=== PATIENT | male | born 1960 | race Hispanic/Latino ===

== ENCOUNTER 2017-11-14 16:36 | Inpatient (IN) | payer OTHER ==
[2017-11-14] MEDS ORDERED: NACL 0.9% 1000 ML 1,000 ML IV ONE (17:42)
[2017-11-14] MEDS ORDERED: ZOFRAN IV ONE (17:42)
[2017-11-14] MEDS ORDERED: MORPHINE IV ONE (17:42)
--- NOTE | 2017-11-14 17:48 | Emergency Department Report ---
ED General Adult HPI - General Chief complaint: Back Pain/Injury Stated complaint: BACK PAIN Time Seen by Provider: 11/14/17 17:31 Source: EMS Mode of arrival: Wheelchair Limitations: No Limitations - History of Present Illness Initial comments: Patient is 57 years old male history of chronic back pain presented to the ER with cement complaining of left upper extremity pain and warned this being going on for 2 weeks. Patient stated that he has been having pus coming out of his left arm and he is left shoulder. Patient denied any fever, nausea or vomiting. -: week(s) (2 weeks) Location: upper extremity Severity scale (0 -10): 10 Quality: stabbing Consistency: constant - Related Data Allergies Allergy/AdvReac Type Severity Reaction Status Date / Time No Known Allergies Allergy Unverified 11/14/17 17:22 ED Review of Systems ROS: Stated complaint: BACK PAIN Other details as noted in HPI Comment: All other systems reviewed and negative Constitutional: denies: chills, fever Respiratory: denies: shortness of breath, SOB with exertion, SOB at rest, wheezing Cardiovascular: denies: chest pain, palpitations, dyspnea on exertion Gastrointestinal: denies: abdominal pain, nausea, vomiting, diarrhea ED Past Medical Hx - Past Medical History Hx Diabetes: Yes - Surgical History Past Surgical History?: No - Social History Smoking Status: Unknown if ever smoked ED Physical Exam - General Limitations: No Limitations General appearance: alert, in no apparent distress - Head Head exam: Present: atraumatic, normocephalic, normal inspection - Eye Eye exam: Present: normal appearance, PERRL - ENT ENT exam: Present: normal exam, normal orophraynx, mucous membranes moist - Neck Neck exam: Present: normal inspection, full ROM. Absent: tenderness, meningismus, lymphadenopathy, thyromegaly - Respiratory Respiratory exam: Present: normal lung sounds bilaterally. Absent: respiratory distress, wheezes, rales, rhonchi, chest wall tenderness - Cardiovascular Cardiovascular Exam: Present: regular rate, normal rhythm, normal heart sounds - GI/Abdominal GI/Abdominal exam: Present: soft, normal bowel sounds. Absent: distended, tenderness, guarding, rebound, rigid, organomegaly, mass, bruit, pulsatile mass , hernia - Extremities Exam Extremities exam: Present: other (multiple wounds oozing greenish pus from the left biceps muscles area in the area of the left shoulder and clavicle.) - Back Exam Back exam: Present: normal inspection, full ROM. Absent: tenderness - Neurological Exam Neurological exam: Present: alert, oriented X3, CN II-XII intact, normal gait - Skin Skin exam: Present: warm, other (see above) ED Course Vital Signs 11/14/17 17:22 Temperature 99.9 F H Pulse Rate 91 H Respiratory 18 Rate Blood Pressure 129/73 [Right] O2 Sat by Pulse 97 Oximetry ED Medical Decision Making - Lab Data Result diagrams: 11/14/17 18:39 - Medical Decision Making Discussed with Dr. Ferreira, I presented the patient to him, he stated that he will be happy to see the patient in the morning. Discussed with Dr. Sanchez, he agreed to admit the patient to his service. Critical care attestation.: If time is entered above; I have spent that time in minutes in the direct care of this critically ill patient, excluding procedure time. ED Disposition Clinical Impression: Abscess of left arm, Abscess of left shoulder, Abscess of upper back excluding scapular region Disposition: OP ADMIT IP TO THIS HOSP Is pt being admited?: Yes Condition: Stable Referrals: PRIMARY CARE, [Primary Care Provider] - 3-5 Days
[2017-11-14] MEDS ORDERED: VANCOMYCIN PHARMACY TO DOSE IV SCH (18:00)
[2017-11-14 19:10] LABS: Basophils # (Auto) 0.1 K/mm3 (0.0-0.1); Basophils % (Auto) 0.6 % (0.0-1.8); Eosinophils % (Auto) 0.1 % (0.0-4.3); Lymphocytes % (Auto) 7.7 % (13.4-35.0); Mean Corpuscular HGB Conc 32 % (32-34); Mean Corpuscular Hemoglobin 27 pg (28-32); Mean Corpuscular Volume 85 fl (84-94); Monocytes # (Auto) 0.9 K/mm3 (0.0-0.8); Monocytes % (Auto) 6.8 % (0.0-7.3); Platelet Count 597 K/mm3 (140-440); Red Blood Count 3.64 M/mm3 (3.65-5.03); Red Cell Distribution Width 15.8 % (13.2-15.2)
[2017-11-14] MEDS ORDERED: VANCOMYCIN 1,500 MG in NACL 0.9% 500 ML 500 ML IV ONE (19:30)
[2017-11-14 19:34] LABS: Alanine Aminotransferase 8 units/L (7-56); Albumin 2.6 g/dL (3.9-5); BUN/Creatinine Ratio 28; Blood Urea Nitrogen 11 mg/dL (9-20); Calcium 8.1 mg/dL (8.4-10.2); Hemolysis Index 6
[2017-11-14] MEDS ORDERED: ZOFRAN ONE (20:15)
[2017-11-14] MEDS ORDERED: MORPHINE ONE (20:15)
--- NOTE | 2017-11-14 21:20 | Ultrasound Report ---
FINAL REPORT EXAM: US EXTREMITY NONVASCULAR LT HISTORY: possible abscess to the left biceps and left shoulder TECHNIQUE: Limited soft tissue ultrasound of the left shoulder and upper arm PRIORS: None. FINDINGS: In the area of clinical concern, there is an avascular area of fluid interspersed among muscle layers in the left mid upper arm. This has the appearance of edema. No well-defined surrounding wall is seen. No solid or cystic focal abnormality is seen. IMPRESSION: No solid or cystic focal abnormality. Cystic fluid interspersed among muscle layers of the upper arm suggesting edema.
[2017-11-15] MEDS ORDERED: MORPHINE IM ONE (00:25)
[2017-11-15] MEDS: MORPHINE IV PRN ×6 (01:26→17:01)
--- NOTE | 2017-11-15 01:29 | Event Note ---
Date: 11/14/17 See dictated H/p in reports L shoulder abscess/Carbuncle-IV abx Surgery consult requested IDDM Malnutrition
[2017-11-15] MEDS ORDERED: VANCOMYCIN/NS 1 GM/250 ML 1 GM/250 ML BAG IV SCH (05:00)
[2017-11-15] MEDS: VANCOMYCIN/0.45 NS 1 GM/250 ML 1 GM/250 ML BAG IV SCH ×2 (05:10→19:44)
[2017-11-15] MEDS ORDERED: ZOFRAN IV PRN ×3 (05:37→05:51)
[2017-11-15] MEDS ORDERED: TYLENOL PO PRN ×3 (05:37→05:51)
[2017-11-15] MEDS ORDERED: MILK OF MAGNESIA PO PRN ×3 (05:37→05:51)
[2017-11-15] MEDS ORDERED: DULCOLAX PR PRN ×2 (05:37→05:51)
[2017-11-15] MEDS ORDERED: MORPHINE IV PRN (05:38)
[2017-11-15] MEDS ORDERED: PERCOCET 5/325 PO PRN ×2 (05:38→05:43)
[2017-11-15] MEDS ORDERED: NACL 0.9% 1000 ML 1,000 ML IV SCH ×2 (06:00)
[2017-11-15] MEDS: UNASYN/NS 3 GM/100 ML 3 GM/100 ML BAG IV SCH ×3 (06:56→19:20)
[2017-11-15 07:17] LABS: BUN/Creatinine Ratio 23; Blood Urea Nitrogen 9 mg/dL (9-20); Calcium 7.9 mg/dL (8.4-10.2); Hemolysis Index 1
--- NOTE | 2017-11-15 07:35 | History and Physical Report ---
CHIEF COMPLAINT: Left upper shoulder abscesses and pain. HISTORY OF PRESENT ILLNESS: A 57-year-old male with multiple tattoos and diabetes, comes in for left upper shoulder abscess and purulent drainage for 2 weeks. The patient has pus coming out of the left suprascapular region and also the left shoulder extending to the left upper arm. Because of the abscess and pain, the patient was staying in his truck for the last 2 days. EMS has to come and get involved. The patient states he cannot walk because of the back pain. Not eating or taking care of himself for the last 2 days. The question is whether he is homeless or not, the patient unable to tell. The patient was alert. PAST MEDICAL HISTORY: Significant for diabetes. PAST SURGICAL HISTORY: None. SOCIAL HISTORY: He used to smoke. FAMILY HISTORY: Significant for diabetes and hypertension. REVIEW OF SYSTEMS: GENERAL: No appetite. Lethargic. Losing weight. HEENT: No sore throat, no postnasal drip. CARDIOVASCULAR AND RESPIRATORY: No shortness of breath. No chest pain. GASTROINTESTINAL: No nausea, no vomiting, no diarrhea. GENITOURINARY: No dysuria. MUSCULOSKELETAL: No flank pain. Has severe pain in the left suprascapular region and left shoulder region. SKIN: Purulent discharge on the left suprascapular and left shoulder region. Copious amounts. Not foul smelling. Swelling present. No redness present. PHYSICAL EXAMINATION: GENERAL: A middle-aged male, looks older than his age. VITAL SIGNS: Temperature 99.9, pulse is 91, respirations are 18, blood pressure 129/73, sats are 97%. HEENT: Unremarkable. Pupils equal and reactive. NECK: Supple, no lymphadenopathy, no thyromegaly. LUNGS: Clear to auscultation and percussion. Good air entry. CARDIOVASCULAR: S1, S2 heard. No gallop, no murmur, no rub. Apical impulse in left fifth intercostal space and midclavicular line. ABDOMEN: Soft and benign. No hepatosplenomegaly. No guarding, no rigidity. Hernial orifices are normal. EXTREMITIES: Good pedal pulses. No pedal edema. CENTRAL NERVOUS SYSTEM: Alert and oriented x 4, nonfocal exam. SKIN: A large area of induration and pus and drainage present on the left suprascapular region and the left shoulder. Two discrete areas of pus drainage. Covering area of 12 cm x 10 cm. Fluctuant. LABORATORY DATA: Significant for white count of 12,800, H and H is 10.0 and 31.0, platelet count is . Electrolytes are normal. Glucose is 139. Total protein is 6.2, albumin is 2.6, BUN and creatinine is 11 and 0.4. Ultrasound of the left upper extremity and shoulder shows avascular area of oozing present among the muscle layers in the left mid upper arm and edema. No well defined surrounding wall seen. No solid or cystic focal abnormalities seen. IMPRESSION: Abscess to the left biceps, left triceps and left shoulder. ASSESSMENT AND PLAN: 1. Left shoulder abscess and left upper extremity abscess. The patient needs I and D. IV antibiotics in the meantime. The patient is started on IV Unasyn and IV vancomycin. ID consult requested. Dr. Ferreira was consulted to see the patient in the morning. 2. Diabetes type 2. The patient started on coverage. The patient may end up being on insulin 70/30 twice a day. 3. Social issues. The patient may be homeless. The patient needs a placement. hostel manager to deal with the social issues. 4. Deep venous thrombosis prophylaxis, Lovenox 40 mg subcutaneous daily 5. Malnutrition, moderate and dietitian consult requested. JOB# [id number] VSM/NTS
[2017-11-15] MEDS: NOVOLOG SUB-Q SCH ×3 (09:15→17:00)
[2017-11-15] MEDS: PEPCID IV SCH ×2 (09:21→21:20)
[2017-11-15] MEDS ORDERED: PEPCID IV SCH (10:00)
[2017-11-15] MEDS ORDERED: K-DUR PO SCH (11:30)
--- NOTE | 2017-11-15 11:39 | Consultation ---
History of Present Illness Consult date: 11/15/17 Reason for consult: wound care Requesting physician: ENRRIQUE WINTERS Chief complaint: chronic drainage from chest and arm - History of present illness History of present illness: 57yo M with recent diagnosis of DM presents with persistent drainage from the left arm and chest. Pt reports that a few weeks ago, he was admitted to [facility] for weakness. During the admission there was a problem with the IV insertion in the left arm. There was great pain associated with it. Soon after he removed it, it swelled and was red. Later, he began to spontaneous drain pus from the left shoulder area. Eventually, he drained from the left arm and near the base of the neck. He has been milking out the pus that accumulated on the left chest. these areas are causing him a lot of pain. Denies F/C/N/V. No other areas of infection on the body. Past History Past Medical History: diabetes Past Surgical History: No surgical history Social history: denies: smoking (stopped a few weeks ago.), alcohol abuse Family history: no significant family history Medications and Allergies Allergies Allergy/AdvReac Type Severity Reaction Status Date / Time No Known Allergies Allergy Unverified 11/14/17 17:22 Active Meds: Active Medications Acetaminophen (Tylenol) 650 mg PO Q4H PRN PRN Reason: Pain MILD(1-3)/Fever >100.5/HAMMER Bisacodyl (Dulcolax) 10 mg WV QDAY PRN PRN Reason: Constipation unrelieved by MOM Famotidine (Pepcid) 20 mg IV BID [facility] Last Admin: 11/15/17 09:21 Dose: 20 mg Vancomycin HCl (Vancomycin/0.45 Ns 1 Gm/250 Ml) 1 gm in 250 mls @ 167.007 mls/ hr IV Q12H [facility] Last Admin: 11/15/17 05:10 Dose: 167.007 mls/hr Ampicillin Sodium/Sulbactam Sodium (Unasyn/Ns 3 Gm/100 Ml) 3 gm in 100 mls @ 100 mls/hr IV Q6HR BRENT PRN Reason: Protocol Stop: 11/22/17 05:59 Last Admin: 11/15/17 06:56 Dose: 100 mls/hr Sodium Chloride (Nacl 0.9% 1000 Ml) 1,000 mls @ 75 mls/hr IV DIRECT [facility] Stop: 11/15/17 18:00 Last Admin: 11/15/17 06:44 Dose: 75 mls/hr Insulin Aspart (Novolog) 0 units SUB-Q ACHS BRENT PRN Reason: Protocol Last Admin: 11/15/17 09:15 Dose: Not Given Magnesium Hydroxide (Milk Of Magnesia) 30 ml PO Q4H PRN PRN Reason: Constipation Morphine Sulfate (Morphine) 4 mg IV Q4H PRN PRN Reason: Pain , Severe (7-10) Last Admin: 11/15/17 09:21 Dose: 4 mg Morphine Sulfate (Morphine) 2 mg IV Q4H PRN PRN Reason: Pain, Moderate (4-6) Ondansetron HCl (Zofran) 4 mg IV Q8H PRN PRN Reason: N/V unrelieved by Reglan Oxycodone/Acetaminophen (Percocet 5/325) 1 tab PO Q6H PRN PRN Reason: Pain, Moderate (4-6) Potassium Chloride (K-Dur) 40 meq PO ONCE [facility] Stop: 11/15/17 18:30 Vancomycin HCl (Vancomycin Pharmacy To Dose) 1 each IV PKCONSULT [facility] Zolpidem Tartrate (Ambien) 5 mg PO QHS PRN PRN Reason: Insomnia Review of Systems - Constitutional weight loss (28lbs when he was admitted in [facility] - early satiety), weakness, no fever, no chills, no sweats, no night sweats - Cardiovascular no chest pain - Respiratory no cough, no shortness of breath - Gastrointestinal no abdominal pain, no nausea, no vomiting - Genitourinary no dysuria - Muskuloskeletal left: shoulder pain, other (left arm) - Integumentary wounds - Hematologic/Lymphatic no easy bruising, no easy bleeding Exam Vital Signs Temp Pulse Resp BP Pulse Ox 99.9 F H 91 H 18 129/73 97 11/14/17 17:22 11/14/17 17:22 11/14/17 17:22 11/14/17 17:22 11/14/17 17:22 - General physical appearance Positive: no distress, moderate pain (occasionally) - Eyes Positive: normal occular movement - Neck Positive: trachea midline - Respiratory Positive: normal expansion, normal respiratory effort, clear to auscultation - Cardiovascular Rhythm: regular - Abdomen Abdomen: Present: soft. Absent: tender, distended, guarding, rigid - Integumentary Body Four View: 1 - Multiple opens with the lateral most draining purulent material. Hypergranulation tissue seen in lateral wound. 2 - Areas of mild erythema with fluctuance. Able to express purulent material from here to lateral wound. 3 - Small opening with purulent drainage. Area proximal suggests a cord, but there is another area on the medial aspect that is also cord-like. There is no erythema or tenderness. - Neurologic Neurologic: alert and oriented to time, place and person, motor strength and sensation are grossly intact - Psychiatric Psychiatric: appropriate mood/affect, intact judgment & insight Results - Labs 11/14/17 18:39 11/15/17 06:39 Abnormal lab results 11/14/17 11/14/17 11/15/17 Range/Units 18:39 18:39 06:39 WBC 12.8 H (4.5-11.0) K/mm3 RBC 3.64 L (3.65-5.03) M/mm3 Hgb 10.0 L (11.8-15.2) gm/dl Hct 31.0 L (35.5-45.6) % MCH 27 L (28-32) pg RDW 15.8 H (13.2-15.2) % Plt Count 597 H (140-440) K/mm3 Lymph % (Auto) 7.7 L (13.4-35.0) % Lymph # 1.0 L (1.2-5.4) K/mm3 Bremer # 0.9 H (0.0-0.8) K/mm3 Seg Neutrophils % 84.8 H (40.0-70.0) % Seg Neutrophils # 10.9 H (1.8-7.7) K/mm3 Sodium 135 L (137-145) mmol/L Potassium 3.3 L (3.6-5.0) mmol/L Creatinine 0.4 L 0.4 L (0.8-1.5) mg/dL Glucose 139 H 119 H (75-100) mg/dL Hemoglobin A1c (4-6) % Calcium 8.1 L 7.9 L (8.4-10.2) mg/dL Total Protein 6.2 L (6.3-8.2) g/dL Albumin 2.6 L (3.9-5) g/dL 11/15/17 Range/Units 06:39 WBC (4.5-11.0) K/mm3 RBC (3.65-5.03) M/mm3 Hgb (11.8-15.2) gm/dl Hct (35.5-45.6) % MCH (28-32) pg RDW (13.2-15.2) % Plt Count (140-440) K/mm3 Lymph % (Auto) (13.4-35.0) % Lymph # (1.2-5.4) K/mm3 Bremer # (0.0-0.8) K/mm3 Seg Neutrophils % (40.0-70.0) % Seg Neutrophils # (1.8-7.7) K/mm3 Sodium (137-145) mmol/L Potassium (3.6-5.0) mmol/L Creatinine (0.8-1.5) mg/dL Glucose (75-100) mg/dL Hemoglobin A1c 7.5 H (4-6) % Calcium (8.4-10.2) mg/dL Total Protein (6.3-8.2) g/dL Albumin (3.9-5) g/dL Diabetes panel 11/14/17 11/15/17 11/15/17 Range/Units 18:39 06:39 06:39 Sodium 138 135 L (137-145) mmol/L Potassium 3.9 3.3 L (3.6-5.0) mmol/L Chloride 98.8 100.6 (98-107) mmol/L Carbon Dioxide 25 25 (22-30) mmol/L BUN 11 9 (9-20) mg/dL Creatinine 0.4 L 0.4 L (0.8-1.5) mg/dL Glucose 139 H 119 H (75-100) mg/dL Hemoglobin A1c 7.5 H (4-6) % Calcium 8.1 L 7.9 L (8.4-10.2) mg/dL AST 10 (5-40) units/L ALT 8 (7-56) units/L Alkaline Phosphatase 98 (35-129) units/L Total Protein 6.2 L (6.3-8.2) g/dL Albumin 2.6 L (3.9-5) g/dL Calcium panel 11/14/17 11/15/17 Range/Units 18:39 06:39 Calcium 8.1 L 7.9 L (8.4-10.2) mg/dL Albumin 2.6 L (3.9-5) g/dL Pituitary panel 11/14/17 11/15/17 Range/Units 18:39 06:39 Sodium 138 135 L (137-145) mmol/L Potassium 3.9 3.3 L (3.6-5.0) mmol/L Chloride 98.8 100.6 (98-107) mmol/L Carbon Dioxide 25 25 (22-30) mmol/L BUN 11 9 (9-20) mg/dL Creatinine 0.4 L 0.4 L (0.8-1.5) mg/dL Glucose 139 H 119 H (75-100) mg/dL Calcium 8.1 L 7.9 L (8.4-10.2) mg/dL Adrenal panel 11/14/17 11/15/17 Range/Units 18:39 06:39 Sodium 138 135 L (137-145) mmol/L Potassium 3.9 3.3 L (3.6-5.0) mmol/L Chloride 98.8 100.6 (98-107) mmol/L Carbon Dioxide 25 25 (22-30) mmol/L BUN 11 9 (9-20) mg/dL Creatinine 0.4 L 0.4 L (0.8-1.5) mg/dL Glucose 139 H 119 H (75-100) mg/dL Calcium 8.1 L 7.9 L (8.4-10.2) mg/dL Total Bilirubin 0.40 (0.1-1.2) mg/dL AST 10 (5-40) units/L ALT 8 (7-56) units/L Alkaline Phosphatase 98 (35-129) units/L Total Protein 6.2 L (6.3-8.2) g/dL Albumin 2.6 L (3.9-5) g/dL - Imaging Additional studies: US of left arm Assessment and Plan - Patient Problems (1) Abscess of multiple sites of upper arm Current Visit: Yes Status: Acute Plan to address problem: Pt stable. Not toxic. As these areas of infection have been here for a few weeks , I think he will benefit from a formal drainage and debridement. Will address left shoulder and arm at same time. I explained to him that I may have to make large openings in the skin to facilitate the healing. Procedure, risks, benefits , alternatives discussed. all questions answered. Pt wishes to proceed to OR. Scheduled for tomorrow at 2pm. NPO after midnight. Thank you for the consult. Please call if there are any questions. Time=60min.
--- NOTE | 2017-11-15 12:25 | Progress Note ---
<CLARA TIRADO - Last Filed: 11/15/17 12:19> Assessment and Plan Assessment and plan: Patient is a 57-year-old male with history of diabetes, comes in for left upper shoulder and arm abscess with purulent drainage for 2 weeks. Patient also complains of back pain which is currently, 10 out of 10 present on admission. Left shoulder abscess and left upper extremity abscess Continue IV antibiotics Dr. Ferreira has evaluated the patient and will perform I&D tomorrow ID consulted Type 2 diabetes ADA diet, Accu-Cheks, ACHS, sliding scale insulin Moderate Malnutrition Nutrition consulted Social problem manager internet consulted DVT prophylaxis Lovenox History Interval history: Patient seen and examined. No new events overnight. Labs and nursing notes reviewed. Hospitalist Physical - Constitutional Vitals: Temp Pulse Resp BP Pulse Ox 98.3 F 85 17 129/78 96 11/15/17 04:55 11/15/17 04:55 11/15/17 04:55 11/15/17 04:55 11/14/17 20:16 General appearance: Present: mild distress, well-nourished - EENT Eyes: Present: PERRL, EOM intact ENT: hearing intact, clear oral mucosa - Neck Neck: Present: supple, normal ROM - Respiratory Respiratory effort: normal Respiratory: bilateral: CTA - Cardiovascular Rhythm: regular Heart Sounds: Present: S1 & S2 - Extremities Extremities: no ischemia, No edema Extremity abnormal: other (left shoulder and upper arm bandage) - Abdominal General gastrointestinal: soft, non-tender, non-distended - Integumentary Integumentary: Present: clear, warm, dry - Psychiatric Psychiatric: appropriate mood/affect, cooperative - Neurologic Neurologic: CNII-XII intact, moves all extremities - Allied Health Allied health notes reviewed: nursing Results - Labs CBC & Chem 7: 11/14/17 18:39 11/15/17 06:39 Labs: Laboratory Last Values WBC 12.8 K/mm3 (4.5-11.0) H 11/14/17 18:39 RBC 3.64 M/mm3 (3.65-5.03) L 11/14/17 18:39 Hgb 10.0 gm/dl (11.8-15.2) L 11/14/17 18:39 Hct 31.0 % (35.5-45.6) L 11/14/17 18:39 MCV 85 fl (84-94) 11/14/17 18:39 MCH 27 pg (28-32) L 11/14/17 18:39 MCHC 32 % (32-34) 11/14/17 18:39 RDW 15.8 % (13.2-15.2) H 18 18:39 Plt Count 597 K/mm3 (140-440) H 11/14/17 18:39 Lymph % (Auto) 7.7 % (13.4-35.0) L 11/14/17 18:39 Conway % (Auto) 6.8 % (0.0-7.3) 11/14/17 18:39 Eos % (Auto) 0.1 % (0.0-4.3) 11/14/17 18:39 Baso % (Auto) 0.6 % (0.0-1.8) 11/14/17 18:39 Lymph # 1.0 K/mm3 (1.2-5.4) L 11/14/17 18:39 Conway # 0.9 K/mm3 (0.0-0.8) H 11/14/17 18:39 Eos # 0.0 K/mm3 (0.0-0.4) 11/14/17 18:39 Baso # 0.1 K/mm3 (0.0-0.1) 11/14/17 18:39 Seg Neutrophils % 84.8 % (40.0-70.0) H 11/14/17 18:39 Seg Neutrophils # 10.9 K/mm3 (1.8-7.7) H 11/14/17 18:39 Sodium 135 mmol/L (137-145) L 11/15/17 06:39 Potassium 3.3 mmol/L (3.6-5.0) L 11/15/17 06:39 Chloride 100.6 mmol/L (98-107) 11/15/17 06:39 Carbon Dioxide 25 mmol/L (22-30) 11/15/17 06:39 Anion Gap 13 mmol/L 11/15/17 06:39 BUN 9 mg/dL (9-20) 11/15/17 06:39 Creatinine 0.4 mg/dL (0.8-1.5) L 11/15/17 06:39 Estimated GFR > 60 ml/min 11/15/17 06:39 BUN/Creatinine Ratio 23 % 11/15/17 06:39 Glucose 119 mg/dL (75-100) H 11/15/17 06:39 POC Glucose 100 (70-105) 11/15/17 08:14 Hemoglobin A1c 7.5 % (4-6) H 11/15/17 06:39 Lactic Acid 1.20 mmol/L (0.7-2.0) 11/14/17 20:02 Calcium 7.9 mg/dL (8.4-10.2) L 11/15/17 06:39 Total Bilirubin 0.40 mg/dL (0.1-1.2) 11/14/17 18:39 AST 10 units/L (5-40) 11/14/17 18:39 ALT 8 units/L (7-56) 11/14/17 18:39 Alkaline Phosphatase 98 units/L (35-129) 11/14/17 18:39 Total Protein 6.2 g/dL (6.3-8.2) L 11/14/17 18:39 Albumin 2.6 g/dL (3.9-5) L 11/14/17 18:39 Albumin/Globulin Ratio 0.7 % 11/14/17 18:39 <KOURTNEY MADRIGAL L - Last Filed: 11/15/17 17:39> Assessment and Plan Assessment and plan: I saw and evaluated the patient. I agree with the findings and the plan of care as documented in the Nurse Practitioner's~note, with the following corrections and additions. will only increase pain control Hospitalist Physical - Constitutional Vitals: Temp Pulse Resp BP Pulse Ox 98.3 F 85 17 129/78 96 11/15/17 04:55 11/15/17 04:55 11/15/17 04:55 11/15/17 04:55 11/14/17 20:16 Results - Labs CBC & Chem 7: 11/14/17 18:39 11/15/17 06:39 Labs: Laboratory Last Values WBC 12.8 K/mm3 (4.5-11.0) H 11/14/17 18:39 RBC 3.64 M/mm3 (3.65-5.03) L 11/14/17 18:39 Hgb 10.0 gm/dl (11.8-15.2) L 11/14/17 18:39 Hct 31.0 % (35.5-45.6) L 11/14/17 18:39 MCV 85 fl (84-94) 11/14/17 18:39 MCH 27 pg (28-32) L 11/14/17 18:39 MCHC 32 % (32-34) 11/14/17 18:39 RDW 15.8 % (13.2-15.2) H 11/14/17 18:39 Plt Count 597 K/mm3 (140-440) H 11/14/17 18:39 Lymph % (Auto) 7.7 % (13.4-35.0) L 11/14/17 18:39 Conway % (Auto) 6.8 % (0.0-7.3) 11/14/17 18:39 Eos % (Auto) 0.1 % (0.0-4.3) 11/14/17 18:39 Baso % (Auto) 0.6 % (0.0-1.8) 11/14/17 18:39 Lymph # 1.0 K/mm3 (1.2-5.4) L 11/14/17 18:39 Conway # 0.9 K/mm3 (0.0-0.8) H 11/14/17 18:39 Eos # 0.0 K/mm3 (0.0-0.4) 11/14/17 18:39 Baso # 0.1 K/mm3 (0.0-0.1) 11/14/17 18:39 Seg Neutrophils % 84.8 % (40.0-70.0) H 18 18:39 Seg Neutrophils # 10.9 K/mm3 (1.8-7.7) H 11/14/17 18:39 Sodium 135 mmol/L (137-145) L 11/15/17 06:39 Potassium 3.3 mmol/L (3.6-5.0) L 11/15/17 06:39 Chloride 100.6 mmol/L (98-107) 11/15/17 06:39 Carbon Dioxide 25 mmol/L (22-30) 11/15/17 06:39 Anion Gap 13 mmol/L 11/15/17 06:39 BUN 9 mg/dL (9-20) 11/15/17 06:39 Creatinine 0.4 mg/dL (0.8-1.5) L 11/15/17 06:39 Estimated GFR > 60 ml/min 11/15/17 06:39 BUN/Creatinine Ratio 23 % 11/15/17 06:39 Glucose 119 mg/dL (75-100) H 11/15/17 06:39 POC Glucose 100 (70-105) 11/15/17 08:14 Hemoglobin A1c 7.5 % (4-6) H 11/15/17 06:39 Lactic Acid 1.20 mmol/L (0.7-2.0) 11/14/17 20:02 Calcium 7.9 mg/dL (8.4-10.2) L 11/15/17 06:39 Total Bilirubin 0.40 mg/dL (0.1-1.2) 11/14/17 18:39 AST 10 units/L (5-40) 11/14/17 18:39 ALT 8 units/L (7-56) 11/14/17 18:39 Alkaline Phosphatase 98 units/L (35-129) 11/14/17 18:39 Total Protein 6.2 g/dL (6.3-8.2) L 11/14/17 18:39 Albumin 2.6 g/dL (3.9-5) L 11/14/17 18:39 Albumin/Globulin Ratio 0.7 % 11/14/17 18:39
--- NOTE | 2017-11-15 17:58 | Event Note ---
Date: 11/15/17 Patient also describes musculoskeletal back pain. Patient describes pain as sharp unable to walk. Patient was unable to care for himself to the restroom without falling. Patient was given 10 Percocet and states there was not enough he needs 3. May be some degree of pain seeking however I do think patient is back may need further evaluation. Maybe imaging both lower evaluation physical therapy evaluation.
--- NOTE | 2017-11-15 19:46 | Consultation ---
History of Present Illness - Reason for Consult Consult date: 11/15/17 Left shoulder and arm abscess Requesting physician: SHARMILA JASSO - History of Present Illness 57 years old male PMH of chronic back pain, DM, who presented to the ER complaining 2-3 weeks h/o of of left shoulder and arm pain and drainage. Pt reports that he saw a doctor who gave him some antibiotic (cannot recall name). Antibiotic help with the drainage, but it didn't go away completely. About 1- 2 weeks ago he noted that his left arm had a golf ball lesion that popped spontaneously and started draining pus. He started to squeeze pus from the lesion as much as possible. He denied any fever, chills, nausea or vomiting. Has severe back pain that makes difficult to ambulate. In the ER temperature 99.9, pulse 91, respirations 18, saturation 97% on room air, blood pressure 129/ 73. White blood cell count was 12.8. H&H 10.0 and 31.0, platelets 597, BUN and creatinine 11 and 0.4. Blood cultures from 11/04/2017 NGTD, wound culture from is pending. Ultrasound of LUE show no solid or cystic lesion. Patient was started on Unasyn and vancomycin. Surgical service has recommended an incision and drainage. ID is seeing the patient today to help with further antibiotic management. Microbiology: Blood cultures: 11/14 NGTD Wound cultures: 11/14 pending Current Antimicrobials: Unasyn 11/15- IV vancomycin 11/14- Past History Past Medical History: diabetes, other (Back pain) Past Surgical History: No surgical history Social history: denies: smoking (stopped a few weeks ago.), alcohol abuse Family history: no significant family history Medications and Allergies Allergies Allergy/AdvReac Type Severity Reaction Status Date / Time No Known Allergies Allergy Unverified 11/14/17 17:22 Active Meds: Active Medications Acetaminophen (Tylenol) 650 mg PO Q4H PRN PRN Reason: Pain MILD(1-3)/Fever >100.5/HAMMER Bisacodyl (Dulcolax) 10 mg IA QDAY PRN PRN Reason: Constipation unrelieved by MOM Famotidine (Pepcid) 20 mg IV BID BRENT Last Admin: 11/15/17 09:21 Dose: 20 mg Vancomycin HCl (Vancomycin/0.45 Ns 1 Gm/250 Ml) 1 gm in 250 mls @ 167.007 mls/ hr IV Q12H [facility] Last Admin: 11/15/17 19:44 Dose: 167.007 mls/hr Ampicillin Sodium/Sulbactam Sodium (Unasyn/Ns 3 Gm/100 Ml) 3 gm in 100 mls @ 100 mls/hr IV Q6HR [facility] PRN Reason: Protocol Stop: 11/22/17 05:59 Last Admin: 11/15/17 14:07 Dose: 100 mls/hr Insulin Aspart (Novolog) 0 units SUB-Q ACHS [facility] PRN Reason: Protocol Last Admin: 11/15/17 17:00 Dose: Not Given Magnesium Hydroxide (Milk Of Magnesia) 30 ml PO Q4H PRN PRN Reason: Constipation Morphine Sulfate (Morphine) 4 mg IV Q4H PRN PRN Reason: Pain , Severe (7-10) Last Admin: 11/15/17 17:01 Dose: 4 mg Morphine Sulfate (Morphine) 2 mg IV Q4H PRN PRN Reason: Pain, Moderate (4-6) Ondansetron HCl (Zofran) 4 mg IV Q8H PRN PRN Reason: N/V unrelieved by Reglan Oxycodone/Acetaminophen (Percocet 5/325) 2 tab PO Q4H PRN PRN Reason: Pain, Moderate (4-6) Vancomycin HCl (Vancomycin Pharmacy To Dose) 1 each IV PKCONSULT [facility] Zolpidem Tartrate (Ambien) 5 mg PO QHS PRN PRN Reason: Insomnia Review of Systems All systems: negative (as per HPI) Physical Examination - Physical Exam Narrative exam: General appearance: Alert in NAD, conversant Eyes: anicteric sclerae, moist conjunctivae; PERRLA HENT: Atraumatic; oropharynx clear with moist mucous membranes and no mucosal ulcerations/no oral thrush; normal hard and soft palate. Normal external ears. Neck: Trachea midline; supple, no thyromegaly or lymphadenopathy Lungs: CTA, with normal respiratory effort and no intercostal retractions CV: S1,S2 Abdomen: Soft, +BS. non-tender; non-distended. Extremities: No c/c/e of BLE. Abscess Left shoulder and Left arm, with abundant purulent drainage. Skin: As above. Psych: Appropriate affect, alert and oriented to person, place and time. Neuro: alert and oriented x 3. Moving all extremities Lines: No CVL / PICC - Constitutional Vitals: Vital Signs Temp Pulse Resp BP Pulse Ox 98.3 F 85 17 129/78 96 11/15/17 04:55 11/15/17 04:55 11/15/17 04:55 11/15/17 04:55 11/14/17 20:16 Temperature -Last 24 Hours Temperature 98.3 F Results - Labs CBC & Chem 7: 11/14/17 18:39 11/15/17 06:39 Labs: Abnormal lab results 11/15/17 11/15/17 11/15/17 Range/Units 06:39 06:39 12:44 Sodium 135 L (137-145) mmol/L Potassium 3.3 L (3.6-5.0) mmol/L Creatinine 0.4 L (0.8-1.5) mg/dL Glucose 119 H (75-100) mg/dL POC Glucose 147 H (70-105) Hemoglobin A1c 7.5 H (4-6) % Calcium 7.9 L (8.4-10.2) mg/dL 11/15/17 Range/Units 17:11 Sodium (137-145) mmol/L Potassium (3.6-5.0) mmol/L Creatinine (0.8-1.5) mg/dL Glucose (75-100) mg/dL POC Glucose 162 H (70-105) Hemoglobin A1c (4-6) % Calcium (8.4-10.2) mg/dL Assessment and Plan Impression 1) Left shoulder and left arm abscess. 2) Leukocytosis due to above. 2) Chronic lower back pain 3) Diabetes mellitus type 2 Recommendations -Incision and drainage in the morning. -Continue unasyn and vancomycin -Will f/u blood and wound cx -Monitor CBC -Consider imaging of his back since c/o severe pain -CBC, BMP in AM. -Further recommendations as case progresses. Thank you for your consultation, will follow up with you. Ivet Hazel MD Infectious Diseases Specialist [facility] ([facility]) [phone]
[2017-11-15] MEDS: PERCOCET 5/325 PO PRN (21:19)
--- NOTE | 2017-11-15 23:05 | Anesthesia Consultation ---
Anesthesia Consult and Med Hx Date of service: 11/15/17 - Airway Anesthetic Teeth Evaluation: Poor, Chipped ROM Head & Neck: Adequate Mental/Hyoid Distance: Inadequate Mallampati Class: Class III Intubation Access Assessment: Possibly Difficult - Pulmonary Exam CTA: Yes - Cardiac Exam Cardiac Exam: RRR - Pre-Operative Health Status ASA Pre-Surgery Classification: ASA3 Proposed Anesthetic Plan: General - Pulmonary Hx Smoking: Yes Hx Asthma: No COPD: No - Cardiovascular System Hx Hypertension: No Hx Coronary Artery Disease: No - Central Nervous System Hx Back Pain: Yes Hx Psychiatric Problems: No - Gastrointestinal Hx Gastroesophageal Reflux Disease: No - Endocrine Hx Renal Disease: No Hx Liver Disease: No - Hematic Hx Anemia: No - Other Systems Hx Alcohol Use: No Hx Substance Use: No Hx Obesity: No
[2017-11-16] MEDS: NOVOLOG SUB-Q SCH ×5 (00:24→22:26)
[2017-11-16] MEDS: MORPHINE IV PRN ×5 (01:13→22:23)
[2017-11-16] MEDS: UNASYN/NS 3 GM/100 ML 3 GM/100 ML BAG IV SCH ×4 (01:16→19:11)
[2017-11-16] MEDS: PERCOCET 5/325 PO PRN ×4 (03:31→20:39)
[2017-11-16 05:08] LABS: Basophils # (Auto) 0.1 K/mm3 (0.0-0.1); Basophils % (Auto) 0.9 % (0.0-1.8); Eosinophils # (Auto) 0.1 K/mm3 (0.0-0.4); Eosinophils % (Auto) 0.8 % (0.0-4.3); Hematocrit 29.1 % (35.5-45.6); Hemoglobin 9.5 gm/dl (11.8-15.2); Lymphocytes # (Auto) 1.3 K/mm3 (1.2-5.4); Lymphocytes % (Auto) 16.5 % (13.4-35.0); Mean Corpuscular HGB Conc 33 % (32-34); Mean Corpuscular Hemoglobin 28 pg (28-32); Mean Corpuscular Volume 84 fl (84-94); Monocytes # (Auto) 0.7 K/mm3 (0.0-0.8); Monocytes % (Auto) 8.1 % (0.0-7.3); Platelet Count 467 K/mm3 (140-440); Red Blood Count 3.45 M/mm3 (3.65-5.03); Red Cell Distribution Width 15.8 % (13.2-15.2)
[2017-11-16 05:23] LABS: BUN/Creatinine Ratio 18; Blood Urea Nitrogen 9 mg/dL (9-20); Calcium 7.6 mg/dL (8.4-10.2); Hemolysis Index 1
[2017-11-16] MEDS: VANCOMYCIN/0.45 NS 1 GM/250 ML 1 GM/250 ML BAG IV SCH ×2 (05:51→16:11)
[2017-11-16] MEDS ORDERED: K-DUR PO ONE ×2 (07:17→12:00)
--- NOTE | 2017-11-16 07:47 | Progress Note ---
Assessment and Plan Impression 1) Left shoulder and left arm abscess. 2) Leukocytosis due to above. Resolved. 2) Chronic lower back pain 3) Diabetes mellitus type 2 Recommendations -Awaiting Incision and drainage. -Continue unasyn and vancomycin -Will f/u blood and wound cx -Will get T and L-Spine X-rays since continues with severe pain -BMP in AM. -Contact precautions since he has draining wounds. -Further recommendations as case progresses. Ivet Hazel MD Infectious Diseases Specialist [facility] ([facility]) M [phone] Subjective Date of service: 11/16/17 Interval history: Afebrile. Still with back pain. Says can't get out of bed. Has purulent drainage from Left shoulder and L arm. Microbiology: Blood cultures: 11/14 NGTD Wound cultures: 11/14 pending Current Antimicrobials: Unasyn 11/15- IV vancomycin 11/14- Objective - Exam Narrative Exam: General appearance: Alert in NAD, conversant Eyes: anicteric sclerae, moist conjunctivae; PERRLA HENT: Atraumatic; oropharynx clear with moist mucous membranes and no mucosal ulcerations/no oral thrush; normal hard and soft palate. Normal external ears. Neck: Trachea midline; supple. Lungs: CTA, with normal respiratory effort and no intercostal retractions CV: S1,S2 Abdomen: Soft, +BS. non-tender; non-distended. Extremities: No c/c/e of BLE. Abscess Left shoulder and Left arm, with abundant purulent drainage. Skin: As above. Psych: Appropriate affect, alert and oriented to person, place and time. Neuro: alert and oriented x 3. Moving all extremities Lines: No CVL / PICC - Constitutional Vitals: Vital Signs Temp Pulse Resp BP Pulse Ox 98.4 F 81 18 130/73 95 11/16/17 04:28 11/16/17 04:28 11/16/17 04:28 11/16/17 04:28 11/16/17 04:28 Temperature -Last 24 Hours Temperature 98.4 F Temperature 98.4 F Temperature 98.5 F Temperature 97.8 F - Labs CBC & Chem 7: 11/16/17 04:38 11/16/17 04:38 Labs: Abnormal lab results 11/15/17 11/15/17 11/15/17 Range/Units 06:39 12:44 17:11 RBC (3.65-5.03) M/mm3 Hgb (11.8-15.2) gm/dl Hct (35.5-45.6) % RDW (13.2-15.2) % Plt Count (140-440) K/mm3 [place] % (Auto) (0.0-7.3) % Seg Neutrophils % (40.0-70.0) % Potassium (3.6-5.0) mmol/L Creatinine (0.8-1.5) mg/dL Glucose (75-100) mg/dL POC Glucose 147 H 162 H (70-105) Hemoglobin A1c 7.5 H (4-6) % Calcium (8.4-10.2) mg/dL 11/15/17 11/16/17 11/16/17 Range/Units 21:54 04:38 04:38 RBC 3.45 L (3.65-5.03) M/mm3 Hgb 9.5 L (11.8-15.2) gm/dl Hct 29.1 L (35.5-45.6) % RDW 15.8 H (13.2-15.2) % Plt Count 467 H (140-440) K/mm3 [place] % (Auto) 8.1 H (0.0-7.3) % Seg Neutrophils % 73.7 H (40.0-70.0) % Potassium 3.2 L (3.6-5.0) mmol/L Creatinine 0.5 L (0.8-1.5) mg/dL Glucose 114 H (75-100) mg/dL POC Glucose 147 H (70-105) Hemoglobin A1c (4-6) % Calcium 7.6 L (8.4-10.2) mg/dL
--- NOTE | 2017-11-16 09:10 | Progress Note ---
<CLARA TIRADO - Last Filed: 11/16/17 14:59> Assessment and Plan Assessment and plan: Patient is a 57-year-old male with history of diabetes, comes in for left upper shoulder and arm abscess with purulent drainage for 2 weeks. Patient also complains of back pain which is currently, 10 out of 10 present on admission. Left shoulder abscess and left upper extremity abscess Continue IV antibiotics, wound cultures from shoulder pending, culture from arm grew Beta Hemolytic Strep B Dr. 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 No new events overnight. Labs and nursing notes reviewed. Hospitalist Physical - Constitutional Vitals: Temp Pulse Resp BP Pulse Ox 98.5 F 82 20 140/75 96 11/16/17 08:09 11/16/17 08:09 11/16/17 08:09 11/16/17 08:09 11/16/17 08:09 General appearance: Present: mild distress, well-nourished - EENT Eyes: Present: PERRL, EOM intact ENT: hearing intact, clear oral mucosa - Neck Neck: Present: supple, normal ROM - Respiratory Respiratory effort: normal Respiratory: right: diminished, bilateral: CTA - Cardiovascular Rhythm: regular Heart Sounds: Present: S1 & S2 - Extremities Extremities: no ischemia, No edema Extremity abnormal: other (purulent drainage from left shoulder and L arm) - Abdominal General gastrointestinal: soft, non-tender, non-distended, normal bowel sounds - Integumentary Integumentary: Present: clear, warm, dry - Psychiatric Psychiatric: appropriate mood/affect, cooperative - Neurologic Neurologic: CNII-XII intact, moves all extremities - Allied Health Allied health notes reviewed: nursing Results - Labs CBC & Chem 7: 11/16/17 04:38 11/16/17 04:38 Labs: Laboratory Last Values WBC 8.0 K/mm3 (4.5-11.0) 11/16/17 04:38 RBC 3.45 M/mm3 (3.65-5.03) L 11/16/17 04:38 Hgb 9.5 gm/dl (11.8-15.2) L 11/16/17 04:38 Hct 29.1 % (35.5-45.6) L 11/16/17 04:38 MCV 84 fl (84-94) 11/16/17 04:38 MCH 28 pg (28-32) 11/16/17 04:38 MCHC 33 % (32-34) 11/16/17 04:38 RDW 15.8 % (13.2-15.2) H 11/16/17 04:38 Plt Count 467 K/mm3 (140-440) H 11/16/17 04:38 Lymph % (Auto) 16.5 % (13.4-35.0) 11/16/17 04:38 [place] % (Auto) 8.1 % (0.0-7.3) H 11/16/17 04:38 Eos % (Auto) 0.8 % (0.0-4.3) 11/16/17 04:38 Baso % (Auto) 0.9 % (0.0-1.8) 11/16/17 04:38 Lymph # 1.3 K/mm3 (1.2-5.4) 11/16/17 04:38 [place] # 0.7 K/mm3 (0.0-0.8) 11/16/17 04:38 Eos # 0.1 K/mm3 (0.0-0.4) 11/16/17 04:38 Baso # 0.1 K/mm3 (0.0-0.1) 11/16/17 04:38 Seg Neutrophils % 73.7 % (40.0-70.0) H 11/16/17 04:38 Seg Neutrophils # 5.9 K/mm3 (1.8-7.7) 11/16/17 04:38 Sodium 139 mmol/L (137-145) 11/16/17 04:38 Potassium 3.2 mmol/L (3.6-5.0) L 11/16/17 04:38 Chloride 103.3 mmol/L (98-107) 11/16/17 04:38 Carbon Dioxide 24 mmol/L (22-30) 11/16/17 04:38 Anion Gap 15 mmol/L 11/16/17 04:38 BUN 9 mg/dL (9-20) 11/16/17 04:38 Creatinine 0.5 mg/dL (0.8-1.5) L 11/16/17 04:38 Estimated GFR > 60 ml/min 11/16/17 04:38 BUN/Creatinine Ratio 18 % 11/16/17 04:38 Glucose 114 mg/dL (75-100) H 11/16/17 04:38 POC Glucose 121 (70-105) H 11/16/17 08:16 Hemoglobin A1c 7.5 % (4-6) H 11/15/17 06:39 Lactic Acid 1.20 mmol/L (0.7-2.0) 11/14/17 20:02 Calcium 7.6 mg/dL (8.4-10.2) L 11/16/17 04:38 Total Bilirubin 0.40 mg/dL (0.1-1.2) 11/14/17 18:39 AST 10 units/L (5-40) 11/14/17 18:39 ALT 8 units/L (7-56) 11/14/17 18:39 Alkaline Phosphatase 98 units/L (35-129) 11/14/17 18:39 Total Protein 6.2 g/dL (6.3-8.2) L 11/14/17 18:39 Albumin 2.6 g/dL (3.9-5) L 11/14/17 18:39 Albumin/Globulin Ratio 0.7 % 11/14/17 18:39 <OSMAR GRACIA R - Last Filed: 11/16/17 23:28> Assessment and Plan Assessment and plan: I saw and evaluated the patient. I agree with the findings and the plan of care as documented in the Nurse Practitioner's~note. Hospitalist Physical - Constitutional Vitals: Temp Pulse Resp BP Pulse Ox 98.2 F 80 18 143/75 97 11/16/17 20:49 11/16/17 20:49 11/16/17 16:31 11/16/17 20:49 11/16/17 16:05 Results - Labs CBC & Chem 7: 11/16/17 04:38 11/16/17 04:38 Labs: Laboratory Last Values WBC 8.0 K/mm3 (4.5-11.0) 11/16/17 04:38 RBC 3.45 M/mm3 (3.65-5.03) L 11/16/17 04:38 Hgb 9.5 gm/dl (11.8-15.2) L 11/16/17 04:38 Hct 29.1 % (35.5-45.6) L 11/16/17 04:38 MCV 84 fl (84-94) 11/16/17 04:38 MCH 28 pg (28-32) 11/16/17 04:38 MCHC 33 % (32-34) 11/16/17 04:38 RDW 15.8 % (13.2-15.2) H 11/16/17 04:38 Plt Count 467 K/mm3 (140-440) H 11/16/17 04:38 Lymph % (Auto) 16.5 % (13.4-35.0) 11/16/17 04:38 [place] % (Auto) 8.1 % (0.0-7.3) H 11/16/17 04:38 Eos % (Auto) 0.8 % (0.0-4.3) 11/16/17 04:38 Baso % (Auto) 0.9 % (0.0-1.8) 11/16/17 04:38 Lymph # 1.3 K/mm3 (1.2-5.4) 11/16/17 04:38 [place] # 0.7 K/mm3 (0.0-0.8) 11/16/17 04:38 Eos # 0.1 K/mm3 (0.0-0.4) 11/16/17 04:38 Baso # 0.1 K/mm3 (0.0-0.1) 11/16/17 04:38 Seg Neutrophils % 73.7 % (40.0-70.0) H 11/16/17 04:38 Seg Neutrophils # 5.9 K/mm3 (1.8-7.7) 11/16/17 04:38 Sodium 139 mmol/L (137-145) 11/16/17 04:38 Potassium 3.2 mmol/L (3.6-5.0) L 11/16/17 04:38 Chloride 103.3 mmol/L (98-107) 11/16/17 04:38 Carbon Dioxide 24 mmol/L (22-30) 11/16/17 04:38 Anion Gap 15 mmol/L 11/16/17 04:38 BUN 9 mg/dL (9-20) 11/16/17 04:38 Creatinine 0.5 mg/dL (0.8-1.5) L 11/16/17 04:38 Estimated GFR > 60 ml/min 11/16/17 04:38 BUN/Creatinine Ratio 18 % 11/16/17 04:38 Glucose 114 mg/dL (75-100) H 11/16/17 04:38 POC Glucose 133 (70-105) H 11/16/17 22:10 Hemoglobin A1c 7.5 % (4-6) H 11/15/17 06:39 Lactic Acid 1.20 mmol/L (0.7-2.0) 11/14/17 20:02 Calcium 7.6 mg/dL (8.4-10.2) L 11/16/17 04:38 Total Bilirubin 0.40 mg/dL (0.1-1.2) 11/14/17 18:39 AST 10 units/L (5-40) 11/14/17 18:39 ALT 8 units/L (7-56) 11/14/17 18:39 Alkaline Phosphatase 98 units/L (35-129) 11/14/17 18:39 Total Protein 6.2 g/dL (6.3-8.2) L 11/14/17 18:39 Albumin 2.6 g/dL (3.9-5) L 11/14/17 18:39 Albumin/Globulin Ratio 0.7 % 11/14/17 18:39
[2017-11-16] MEDS: PEPCID IV SCH ×2 (09:43→22:15)
--- NOTE | 2017-11-16 11:57 | XRay Report ---
THORACIC SPINE, 2 VIEWS: LUMBOSACRAL SPINE, 3 VIEWS: History: Back pain Findings: The vertebral bodies, disk spaces and posterior elements are intact. No compression deformity or malalignment. Moderate to severe multilevel degenerative disc disease and facet arthropathy is identified. No obvious bone lesion. The SI joints are symmetric and unremarkable. Impression: Thoracic and lumbar spondylosis. No acute process noted.
--- NOTE | 2017-11-16 14:15 | Progress Note ---
Assessment and Plan - Patient Problems (1) Abscess of multiple sites of upper arm Current Visit: Yes Status: Acute Plan to address problem: Pt stable. Not toxic. As these areas of infection have been here for a few weeks , I think he will benefit from a formal drainage and debridement. Will address left shoulder and arm at same time. Pt reported that he was hungry and breakfast was brought to him. Surgery had to be cancelled for today. NPO after midnight has been placed again. . Scheduled for tomorrow at 12:30pm. I have stated multiple times that he is not to eat/drink anything after MN, even if breakfast is brought in the morning. Thank you for the consult. Please call if there are any questions. Time=10min. Subjective Date of service: 11/16/17 Patient Reports: Positive: no new complaints (Pt ate breakfast this Am. Thought surgery was cancelled since tray was brought this Am. ) Objective Vital Signs - 12hr 11/16/17 11/16/17 11/16/17 03:31 04:28 04:31 Temperature 98.4 F Pulse Rate 81 Respiratory 16 18 17 Rate Blood Pressure 130/73 O2 Sat by Pulse 95 Oximetry 11/16/17 08:09 Temperature 98.5 F Pulse Rate 82 Respiratory 20 Rate Blood Pressure 140/75 O2 Sat by Pulse 96 Oximetry - General physical appearance no distress, no pain - Eyes normal occular movement - Respiratory normal expansion, normal respiratory effort - Integumentary other (draining wounds on left chest and arm. ) - Psychiatric oriented to time, oriented to person, oriented to place, speech is normal, memory intact - Labs 11/16/17 04:38 11/16/17 04:38 Diabetes panel 11/16/17 Range/Units 04:38 Sodium 139 (137-145) mmol/L Potassium 3.2 L (3.6-5.0) mmol/L Chloride 103.3 (98-107) mmol/L Carbon Dioxide 24 (22-30) mmol/L BUN 9 (9-20) mg/dL Creatinine 0.5 L (0.8-1.5) mg/dL Glucose 114 H (75-100) mg/dL Calcium 7.6 L (8.4-10.2) mg/dL Calcium panel 11/16/17 Range/Units 04:38 Calcium 7.6 L (8.4-10.2) mg/dL Pituitary panel 11/16/17 Range/Units 04:38 Sodium 139 (137-145) mmol/L Potassium 3.2 L (3.6-5.0) mmol/L Chloride 103.3 (98-107) mmol/L Carbon Dioxide 24 (22-30) mmol/L BUN 9 (9-20) mg/dL Creatinine 0.5 L (0.8-1.5) mg/dL Glucose 114 H (75-100) mg/dL Calcium 7.6 L (8.4-10.2) mg/dL Adrenal panel 11/16/17 Range/Units 04:38 Sodium 139 (137-145) mmol/L Potassium 3.2 L (3.6-5.0) mmol/L Chloride 103.3 (98-107) mmol/L Carbon Dioxide 24 (22-30) mmol/L BUN 9 (9-20) mg/dL Creatinine 0.5 L (0.8-1.5) mg/dL Glucose 114 H (75-100) mg/dL Calcium 7.6 L (8.4-10.2) mg/dL
[2017-11-17] MEDS: UNASYN/NS 3 GM/100 ML 3 GM/100 ML BAG IV SCH ×4 (00:30→18:27)
[2017-11-17] MEDS: MORPHINE IV PRN ×4 (03:21→23:30)
[2017-11-17] MEDS: PERCOCET 5/325 PO PRN ×2 (05:27→20:18)
[2017-11-17] MEDS: VANCOMYCIN/0.45 NS 1 GM/250 ML 1 GM/250 ML BAG IV SCH (05:45)
[2017-11-17 06:20] LABS: BUN/Creatinine Ratio 23; Blood Urea Nitrogen 9 mg/dL (9-20); Calcium 8.1 mg/dL (8.4-10.2); Hemolysis Index 1
[2017-11-17] MEDS: NOVOLOG SUB-Q SCH ×4 (08:45→21:31)
--- NOTE | 2017-11-17 08:55 | Progress Note ---
<CLARA TIRADO - Last Filed: 11/17/17 11:18> Assessment and Plan Assessment and plan: Patient is a 57-year-old male with history of diabetes, comes in for left upper shoulder and arm abscess with purulent drainage for 2 weeks. Patient also complains of back pain which is currently, 10 out of 10 present on admission. Left shoulder abscess and left upper extremity abscess Continue IV antibiotics, wound cultures from shoulder pending, culture from arm grew Beta Hemolytic Strep B Dr. 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 No new events overnight, continues to complain of back pain 07/06. Labs and nursing notes reviewed. Hospitalist Physical - Constitutional Vitals: Temp Pulse Resp BP Pulse Ox 97.8 F 82 18 114/75 97 11/17/17 06:51 11/17/17 06:51 11/17/17 06:51 11/17/17 06:51 11/16/17 16:05 General appearance: Present: no acute distress, well-nourished - EENT Eyes: Present: PERRL, EOM intact ENT: hearing intact, clear oral mucosa - Neck Neck: Present: supple, normal ROM - Respiratory Respiratory effort: normal Respiratory: bilateral: CTA - Cardiovascular Rhythm: regular Heart Sounds: Present: S1 & S2 - Extremities Extremities: no ischemia, No edema Extremity abnormal: other (purulent discharge from L shoulder and arm) - Abdominal General gastrointestinal: soft, non-tender, non-distended - Integumentary Integumentary: Present: clear, warm, dry - Psychiatric Psychiatric: appropriate mood/affect, cooperative - Neurologic Neurologic: CNII-XII intact, moves all extremities - Allied Health Allied health notes reviewed: nursing Results - Labs CBC & Chem 7: 11/16/17 04:38 11/17/17 04:50 Labs: Laboratory Last Values WBC 8.0 K/mm3 (4.5-11.0) 11/16/17 04:38 RBC 3.45 M/mm3 (3.65-5.03) L 11/16/17 04:38 Hgb 9.5 gm/dl (11.8-15.2) L 11/16/17 04:38 Hct 29.1 % (35.5-45.6) L 11/16/17 04:38 MCV 84 fl (84-94) 11/16/17 04:38 MCH 28 pg (28-32) 11/16/17 04:38 MCHC 33 % (32-34) 11/16/17 04:38 RDW 15.8 % (13.2-15.2) H 11/16/17 04:38 Plt Count 467 K/mm3 (140-440) H 11/16/17 04:38 Lymph % (Auto) 16.5 % (13.4-35.0) 11/16/17 04:38 Morrison % (Auto) 8.1 % (0.0-7.3) H 11/16/17 04:38 Eos % (Auto) 0.8 % (0.0-4.3) 11/16/17 04:38 Baso % (Auto) 0.9 % (0.0-1.8) 11/16/17 04:38 Lymph # 1.3 K/mm3 (1.2-5.4) 11/16/17 04:38 Morrison # 0.7 K/mm3 (0.0-0.8) 11/16/17 04:38 Eos # 0.1 K/mm3 (0.0-0.4) 11/16/17 04:38 Baso # 0.1 K/mm3 (0.0-0.1) 11/16/17 04:38 Seg Neutrophils % 73.7 % (40.0-70.0) H 11/16/17 04:38 Seg Neutrophils # 5.9 K/mm3 (1.8-7.7) 11/16/17 04:38 Sodium 137 mmol/L (137-145) 11/17/17 04:50 Potassium 3.6 mmol/L (3.6-5.0) 11/17/17 04:50 Chloride 97.4 mmol/L (98-107) L 11/17/17 04:50 Carbon Dioxide 25 mmol/L (22-30) 11/17/17 04:50 Anion Gap 18 mmol/L 11/17/17 04:50 BUN 9 mg/dL (9-20) 11/17/17 04:50 Creatinine 0.4 mg/dL (0.8-1.5) L 11/17/17 04:50 Estimated GFR > 60 ml/min 11/17/17 04:50 BUN/Creatinine Ratio 23 % 11/17/17 04:50 Glucose 118 mg/dL (75-100) H 11/17/17 04:50 POC Glucose 115 (70-105) H 11/17/17 08:38 Hemoglobin A1c 7.5 % (4-6) H 11/15/17 06:39 Lactic Acid 1.20 mmol/L (0.7-2.0) 11/14/17 20:02 Calcium 8.1 mg/dL (8.4-10.2) L 11/17/17 04:50 Total Bilirubin 0.40 mg/dL (0.1-1.2) 11/14/17 18:39 AST 10 units/L (5-40) 11/14/17 18:39 ALT 8 units/L (7-56) 11/14/17 18:39 Alkaline Phosphatase 98 units/L (35-129) 11/14/17 18:39 Total Protein 6.2 g/dL (6.3-8.2) L 11/14/17 18:39 Albumin 2.6 g/dL (3.9-5) L 11/14/17 18:39 Albumin/Globulin Ratio 0.7 % 11/14/17 18:39 Vancomycin Trough 8.0 ug/mL (5.0-20.0) 11/17/17 04:50 <OSMAR GRACIA R - Last Filed: 11/17/17 23:43> Assessment and Plan Assessment and plan: I saw and evaluated the patient. I agree with the findings and the plan of care as documented in the Nurse Practitioner's~note. Hospitalist Physical - Constitutional Vitals: Temp Pulse Resp BP Pulse Ox 98.4 F 92 H 20 137/65 94 11/17/17 21:41 11/17/17 21:41 11/17/17 21:41 11/17/17 21:41 11/17/17 18:42 Results - Labs CBC & Chem 7: 11/16/17 04:38 11/17/17 04:50 Labs: Laboratory Last Values WBC 8.0 K/mm3 (4.5-11.0) 11/16/17 04:38 RBC 3.45 M/mm3 (3.65-5.03) L 11/16/17 04:38 Hgb 9.5 gm/dl (11.8-15.2) L 11/16/17 04:38 Hct 29.1 % (35.5-45.6) L 11/16/17 04:38 MCV 84 fl (84-94) 11/16/17 04:38 MCH 28 pg (28-32) 11/16/17 04:38 MCHC 33 % (32-34) 11/16/17 04:38 RDW 15.8 % (13.2-15.2) H 11/16/17 04:38 Plt Count 467 K/mm3 (140-440) H 11/16/17 04:38 Lymph % (Auto) 16.5 % (13.4-35.0) 11/16/17 04:38 Morrison % (Auto) 8.1 % (0.0-7.3) H 11/16/17 04:38 Eos % (Auto) 0.8 % (0.0-4.3) 11/16/17 04:38 Baso % (Auto) 0.9 % (0.0-1.8) 11/16/17 04:38 Lymph # 1.3 K/mm3 (1.2-5.4) 11/16/17 04:38 Morrison # 0.7 K/mm3 (0.0-0.8) 11/16/17 04:38 Eos # 0.1 K/mm3 (0.0-0.4) 11/16/17 04:38 Baso # 0.1 K/mm3 (0.0-0.1) 11/16/17 04:38 Seg Neutrophils % 73.7 % (40.0-70.0) H 11/16/17 04:38 Seg Neutrophils # 5.9 K/mm3 (1.8-7.7) 11/16/17 04:38 Sodium 137 mmol/L (137-145) 11/17/17 04:50 Potassium 3.6 mmol/L (3.6-5.0) 11/17/17 04:50 Chloride 97.4 mmol/L (98-107) L 11/17/17 04:50 Carbon Dioxide 25 mmol/L (22-30) 11/17/17 04:50 Anion Gap 18 mmol/L 11/17/17 04:50 BUN 9 mg/dL (9-20) 11/17/17 04:50 Creatinine 0.4 mg/dL (0.8-1.5) L 11/17/17 04:50 Estimated GFR > 60 ml/min 11/17/17 04:50 BUN/Creatinine Ratio 23 % 11/17/17 04:50 Glucose 118 mg/dL (75-100) H 11/17/17 04:50 POC Glucose 215 (70-105) H 11/17/17 20:47 Hemoglobin A1c 7.5 % (4-6) H 11/15/17 06:39 Lactic Acid 1.20 mmol/L (0.7-2.0) 11/14/17 20:02 Calcium 8.1 mg/dL (8.4-10.2) L 11/17/17 04:50 Total Bilirubin 0.40 mg/dL (0.1-1.2) 11/14/17 18:39 AST 10 units/L (5-40) 11/14/17 18:39 ALT 8 units/L (7-56) 11/14/17 18:39 Alkaline Phosphatase 98 units/L (35-129) 11/14/17 18:39 Total Protein 6.2 g/dL (6.3-8.2) L 11/14/17 18:39 Albumin 2.6 g/dL (3.9-5) L 11/14/17 18:39 Albumin/Globulin Ratio 0.7 % 11/14/17 18:39 Vancomycin Trough 8.0 ug/mL (5.0-20.0) 11/17/17 04:50
[2017-11-17] MEDS: PEPCID IV SCH ×2 (10:23→21:30)
--- NOTE | 2017-11-17 11:51 | Progress Note ---
<ELAN SHRESTHA - Last Filed: 11/17/17 14:45> Assessment and Plan Assessment: 1) Left shoulder and left arm abscess. -11/14 left arm culture + beta hemlytic strep group B 2) Leukocytosis due to above. Resolved. 2) Chronic lower back pain -T and L-Spine X-rays 11/16 showed thoracic and lumbar spondylosis 3) Diabetes mellitus type 2 Plan: -follow up Incision and drainage, per surgeon Scheduled for today at 12:30pm -Continue unasyn -stop vancomycin in view of + beta hemlytic strep group B -continue contact precautions since he has draining wounds. -Further recommendations as case progresses. Thank you for the consult Elan Shrestha NP for Ivet Hazel MD Infectious Diseases Specialist [facility] ([facility]) [phone] Subjective Date of service: 11/17/17 Interval history: Microbiology: Blood cultures: 11/14 NGTD Wound cultures: 11/14 left arm + beta hemlytic strep group B Current Antimicrobials: Unasyn 11/15- IV vancomycin 11/14- Objective - Exam Narrative Exam: General appearance: Alert in NAD, conversant Eyes: anicteric sclerae, moist conjunctivae; PERRLA HENT: Atraumatic; oropharynx clear with moist mucous membranes and no mucosal ulcerations/no oral thrush; normal hard and soft palate. Normal external ears. Neck: Trachea midline; supple. Lungs: CTA, with normal respiratory effort and no intercostal retractions CV: S1,S2 Abdomen: Soft, +BS. non-tender; non-distended. Extremities: No c/c/e of BLE. Abscess Left shoulder and Left arm, with abundant purulent drainage. Skin: As above. Psych: Appropriate affect, alert and oriented to person, place and time. Neuro: alert and oriented x 3. Moving all extremities Lines: No CVL / PICC - Constitutional Vitals: Vital Signs Temp Pulse Resp BP Pulse Ox 97.7 F 80 16 154/87 96 11/17/17 11:34 11/17/17 11:34 11/17/17 11:34 11/17/17 11:34 11/17/17 11:34 Temperature -Last 24 Hours Temperature 97.7 F Temperature 97.7 F Temperature 98.4 F Temperature 97.8 F Temperature 98.2 F Temperature 98.4 F - Labs CBC & Chem 7: 11/16/17 04:38 11/17/17 04:50 Labs: Abnormal lab results 11/16/17 11/16/17 11/16/17 Range/Units 11:39 16:10 22:10 Chloride (98-107) mmol/L Creatinine (0.8-1.5) mg/dL Glucose (75-100) mg/dL POC Glucose 135 H 132 H 133 H (70-105) Calcium (8.4-10.2) mg/dL 11/17/17 11/17/17 11/17/17 Range/Units 04:50 08:38 11:15 Chloride 97.4 L (98-107) mmol/L Creatinine 0.4 L (0.8-1.5) mg/dL Glucose 118 H (75-100) mg/dL POC Glucose 115 H 132 H (70-105) Calcium 8.1 L (8.4-10.2) mg/dL <IVET HAZEL - Last Filed: 11/17/17 16:35> Objective - Constitutional Vitals: Vital Signs Temp Pulse Resp BP Pulse Ox 98.3 F 82 20 154/82 94 11/17/17 14:27 11/17/17 14:27 11/17/17 15:34 11/17/17 14:27 11/17/17 14:27 Temperature -Last 24 Hours Temperature 98.3 F Temperature 98.3 F Temperature 97.7 F Temperature 97.7 F Temperature 98.4 F Temperature 97.8 F Temperature 98.2 F - Labs CBC & Chem 7: 11/16/17 04:38 11/17/17 04:50 Labs: Abnormal lab results 11/16/17 11/16/17 11/17/17 Range/Units 16:10 22:10 04:50 Chloride 97.4 L (98-107) mmol/L Creatinine 0.4 L (0.8-1.5) mg/dL Glucose 118 H (75-100) mg/dL POC Glucose 132 H 133 H (70-105) Calcium 8.1 L (8.4-10.2) mg/dL 11/17/17 11/17/17 11/17/17 Range/Units 08:38 11:15 13:31 Chloride (98-107) mmol/L Creatinine (0.8-1.5) mg/dL Glucose (75-100) mg/dL POC Glucose 115 H 132 H 127 H (70-105) Calcium (8.4-10.2) mg/dL
[2017-11-17] MEDS ORDERED: MARCAINE 0.5% 30 ML INFILTRATI ONE (11:55)
[2017-11-17] MEDS ORDERED: VERSED IV NR (12:00)
[2017-11-17] MEDS ORDERED: NACL 0.9% IR ONE (12:06)
[2017-11-17] MEDS ORDERED: MARCAINE 0.5% INFILTRATI ONE (12:06)
[2017-11-17] MEDS ORDERED: ZOFRAN ONE (12:08)
[2017-11-17] MEDS ORDERED: XYLOCAINE CARDIAC IV ONE (12:08)
[2017-11-17] MEDS ORDERED: DECADRON ONE (12:08)
[2017-11-17] MEDS ORDERED: DIPRIVAN 10 MG/ML IV ONE (12:09)
[2017-11-17] MEDS ORDERED: SUBLIMAZE ONE (12:09)
[2017-11-17] MEDS ORDERED: TORADOL ONE (12:56)
--- NOTE | 2017-11-17 13:17 | Post Operative Note ---
Date of procedure: 11/17/17 (Dictation#[id number]) Pre-op diagnosis: complicated soft tissue abscesses Post-op diagnosis: same Findings: large cavities with complex sinus tracts Procedure: I&D of abscess cavities Anesthesia: FREEMANA Surgeon: LUDA BERNABE Estimated blood loss: minimal Pathology: list (tissue culture from left upper arm) Specimen disposition: to lab Condition: stable Disposition: PACU
[2017-11-17] MEDS: NACL 0.9% 1000 ML 1,000 ML IV SCH (14:03)
[2017-11-17] MEDS ORDERED: VANCOMYCIN 1,500 MG in NACL 0.9% 500 ML 500 ML IV SCH (16:00)
--- NOTE | 2017-11-17 16:35 | Operative Report ---
PREOPERATIVE DIAGNOSIS: Chronic wound drainage from the left arm and left shoulder. POSTOPERATIVE DIAGNOSES: Chronic wound drainage from the left arm and left shoulder. PROCEDURE: Incision and drainage of left arm and left chest wall. ATTENDING PHYSICIAN: Dr. Mellissa Ferreira. ANESTHESIA: General. ESTIMATED BLOOD LOSS: Minimal. FLUIDS: 1 liter. FINDINGS: There was a 6 x 12 cm cavity underneath the skin in the left upper arm that had chronically inflamed tissue and a small amount of purulent material. There was some necrotic material that possibly could have been related to thrombophlebitis from his previous hospitalization, underlying fascia and muscle appeared to be viable, no significant subcutaneous necrosis was seen. On the left chest wall, the draining wounds communicated to the left upper chest pocket, that pocket was approximately 2 x 10 cm in total area and it did have a tract that communicated with the openings on the upper aspect of the left shoulder and base of neck. SPECIMEN: Wound cultures were taken from the left arm and from the left chest. They were sent separately as long as a tissue as well as a tissue culture from the left arm. DRAINS: Two quarter inch Posey drains were placed in the tracts communicating with the left chest cavity and the 2 draining wounds. COMPLICATIONS: No complications. DISPOSITION: Stable, transferred to Recovery Room. INDICATIONS: This is a 57-year-old male who reports that when he was at an outside facility in September, he developed swelling and redness in the left arm after an IV was placed. Thereafter, he began to spontaneously drain from a wound at the top of his left shoulder and then he developed other draining wounds. He presented to [facility] with complaints of left upper extremity pain and weakness. The patient felt to have chronic abscess cavities that were in need of incision and drainage in the operating room. Procedure, risks, benefits were explained to the patient. Risks included but were not limited to infection, bleeding, pain, injury to surrounding structures, possible need for further procedures. We also discussed alternatives to surgery. The patient understood and consented to incision and drainage in the operating room. OPERATIVE NOTE: The patient was brought to the operating room and placed on the table in supine position. After adequate general anesthesia was established, the patient was prepped and draped in usual sterile fashion. The patient was already on antibiotics in the hospital. SCDs were in place. I began by probing the left arm wound where he had purulent material draining out. The lacrimal probe went easily up the majority of the arm on the anterior aspect. I made the opening larger with an 11 blade and then inserted culture swabs to get samples. Then, I opened up the wound further. My goal here was to open it up enough, so that wound packing could be done easily. We scraped out some of the chronic inflammatory tissue. Some of the necrotic tissue that could have been related to thrombophlebitis was excised and passed off the table in sterile fashion. This was sent to the lab. I packed the wound with Surgicel as it was oozing from multiple sites as expected with chronically inflamed tissue and then packed the wound with a lap sponge. We turned our attention to the shoulder and chest area. First, I cleaned off the chronic granulation tissue on both open wounds and then probed them, they seemed to both head towards the upper chest wall in the fluctuant area that previously I had been able to press and express purulent material from the open wounds. I made a small incision there and probed that wound. It indeed was in communication with these 2 large open wounds as well as extending down towards the center of the chest. I opened up this wound a little bit further. There was no significant purulent material here; however, we did obtain another set of culture swabs. I opened up the chest wound to get adequate drainage. Here again, I was trying to balance adequate drainage versus having a very large wound that would take a long time to heal. The wound cavity here was about 2 x 10 cm. The incision was approximately 6-7 cm. I felt that this was adequate enough to allow for easy packing. I wanted to make sure the sinus tracts were well drained. Therefore, I placed quarter inch Posey drains in those areas with small openings along the drain to allow for any residual purulent material and/or fluid to drain out. We will remove these in a few days if there is not much draining up. Again in the abscess cavity, there was a chronic inflammatory tissue, which I scraped out. We placed Surgicel and packed that wound. We returned our attention to the left arm. We had very good hemostasis. I then packed it with a moist Kerlix. Going back to chest, we had fairly good hemostasis, where needed in both wounds, we used electrocautery. We packed this wound with moist Kerlix as well and then covered the wounds with ABDs after the skin had been clean and dry. All counts were correct at the end of the case. The patient tolerated the procedure well. There were no complications. JOB# [id number] ROGER/BRANDI
[2017-11-17] MEDS: AMBIEN PO PRN (23:40)
[2017-11-18] MEDS: UNASYN/NS 3 GM/100 ML 3 GM/100 ML BAG IV SCH ×4 (00:51→17:00)
[2017-11-18] MEDS: PERCOCET 5/325 PO PRN ×4 (02:02→20:39)
[2017-11-18] MEDS: MORPHINE IV PRN ×2 (06:04→10:44)
[2017-11-18 06:43] LABS: Basophils % (Auto) 0.3 % (0.0-1.8); Eosinophils % (Auto) 0.1 % (0.0-4.3); Hematocrit 30.9 % (35.5-45.6); Hemoglobin 9.9 gm/dl (11.8-15.2); Lymphocytes # (Auto) 1.4 K/mm3 (1.2-5.4); Lymphocytes % (Auto) 15.4 % (13.4-35.0); Mean Corpuscular HGB Conc 32 % (32-34); Mean Corpuscular Hemoglobin 27 pg (28-32); Mean Corpuscular Volume 84 fl (84-94); Monocytes # (Auto) 0.6 K/mm3 (0.0-0.8); Monocytes % (Auto) 6.9 % (0.0-7.3); Platelet Count 500 K/mm3 (140-440); Red Blood Count 3.68 M/mm3 (3.65-5.03)
[2017-11-18 06:57] LABS: BUN/Creatinine Ratio 28; Blood Urea Nitrogen 11 mg/dL (9-20); Calcium 7.9 mg/dL (8.4-10.2); Hemolysis Index 13
[2017-11-18] MEDS: NOVOLOG SUB-Q SCH ×4 (08:22→22:16)
[2017-11-18] MEDS: PEPCID IV SCH ×2 (09:41→22:12)
--- NOTE | 2017-11-18 09:45 | Progress Note ---
<CLARA TIRADO - Last Filed: 11/18/17 14:21> Assessment and Plan Assessment and plan: Patient is a 57-year-old male with history of diabetes, comes in for left upper shoulder and arm abscess with purulent drainage for 2 weeks. Patient also complains of back pain which is currently, 10 out of 10 present on admission. Left shoulder abscess and left upper extremity abscess Continue IV antibiotics, wound cultures from shoulder pending, culture from arm grew Beta Hemolytic Strep B S/P I&D yesterday by Dr. Ferreira, ID following, stopped Vancomycin Type 2 diabetes ADA diet, Accu-Cheks, ACHS, sliding scale insulin Moderate Malnutrition Nutrition consulted Hypokalemia O Replenished as Anemia ??Chronicity, will continue to monitor Social problem manager treasury consulted DVT prophylaxis Lovenox History Interval history: Patient seen and examined. No new events overnight, continues to complain of back pain. Labs and nursing notes reviewed. Hospitalist Physical - Constitutional Vitals: Temp Pulse Resp BP Pulse Ox 98.0 F 86 20 147/81 97 11/18/17 07:25 11/18/17 07:25 11/18/17 07:25 11/18/17 07:25 11/18/17 07:25 General appearance: Present: no acute distress, well-nourished - EENT Eyes: Present: PERRL, irregular pupil ENT: hearing intact, clear oral mucosa - Neck Neck: Present: supple, normal ROM - Respiratory Respiratory effort: normal Respiratory: bilateral: CTA - Cardiovascular Rhythm: regular Heart Sounds: Present: S1 & S2 - Extremities Extremities: no ischemia, No edema Extremity abnormal: other (L arm and shoulder bandaged) - Abdominal General gastrointestinal: soft, non-tender, non-distended - Integumentary Integumentary: Present: clear, warm, dry - Psychiatric Psychiatric: appropriate mood/affect, cooperative - Neurologic Neurologic: CNII-XII intact, moves all extremities - Allied Health Allied health notes reviewed: nursing Results - Labs CBC & Chem 7: 11/18/17 06:21 11/18/17 06:21 Labs: Laboratory Last Values WBC 9.3 K/mm3 (4.5-11.0) 11/18/17 06:21 RBC 3.68 M/mm3 (3.65-5.03) 11/18/17 06:21 Hgb 9.9 gm/dl (11.8-15.2) L 11/18/17 06:21 Hct 30.9 % (35.5-45.6) L 11/18/17 06:21 MCV 84 fl (84-94) 11/18/17 06:21 MCH 27 pg (28-32) L 11/18/17 06:21 MCHC 32 % (32-34) 11/18/17 06:21 RDW 16.0 % (13.2-15.2) H 11/18/17 06:21 Plt Count 500 K/mm3 (140-440) H 11/18/17 06:21 Lymph % (Auto) 15.4 % (13.4-35.0) 11/18/17 06:21 Butts % (Auto) 6.9 % (0.0-7.3) 11/18/17 06:21 Eos % (Auto) 0.1 % (0.0-4.3) 11/18/17 06:21 Baso % (Auto) 0.3 % (0.0-1.8) 11/18/17 06:21 Lymph # 1.4 K/mm3 (1.2-5.4) 11/18/17 06:21 Butts # 0.6 K/mm3 (0.0-0.8) 11/18/17 06:21 Eos # 0.0 K/mm3 (0.0-0.4) 11/18/17 06:21 Baso # 0.0 K/mm3 (0.0-0.1) 11/18/17 06:21 Seg Neutrophils % 77.3 % (40.0-70.0) H 11/18/17 06:21 Seg Neutrophils # 7.2 K/mm3 (1.8-7.7) 11/18/17 06:21 Sodium 135 mmol/L (137-145) L 11/18/17 06:21 Potassium 4.1 mmol/L (3.6-5.0) 11/18/17 06:21 Chloride 97.7 mmol/L (98-107) L 11/18/17 06:21 Carbon Dioxide 24 mmol/L (22-30) 11/18/17 06:21 Anion Gap 17 mmol/L 11/18/17 06:21 BUN 11 mg/dL (9-20) 11/18/17 06:21 Creatinine 0.4 mg/dL (0.8-1.5) L 11/18/17 06:21 Estimated GFR > 60 ml/min 11/18/17 06:21 BUN/Creatinine Ratio 28 % 11/18/17 06:21 Glucose 136 mg/dL (75-100) H 11/18/17 06:21 POC Glucose 131 (70-105) H 11/18/17 07:31 Hemoglobin A1c 7.5 % (4-6) H 11/15/17 06:39 Lactic Acid 1.20 mmol/L (0.7-2.0) 11/14/17 20:02 Calcium 7.9 mg/dL (8.4-10.2) L 11/18/17 06:21 Total Bilirubin 0.40 mg/dL (0.1-1.2) 11/14/17 18:39 AST 10 units/L (5-40) 11/14/17 18:39 ALT 8 units/L (7-56) 11/14/17 18:39 Alkaline Phosphatase 98 units/L (35-129) 11/14/17 18:39 Total Protein 6.2 g/dL (6.3-8.2) L 11/14/17 18:39 Albumin 2.6 g/dL (3.9-5) L 11/14/17 18:39 Albumin/Globulin Ratio 0.7 % 11/14/17 18:39 Vancomycin Trough 8.0 ug/mL (5.0-20.0) 11/17/17 04:50 <OSMAR GRACIA R - Last Filed: 11/18/17 22:10> Assessment and Plan Assessment and plan: I saw and evaluated the patient. I agree with the findings and the plan of care as documented in the Nurse Practitioner's~note, with the following corrections and additions. MRI of the lumber spine showed possible osteomylitis/discitis L4-5. will further discuss plan of care with ID. Hospitalist Physical - Constitutional Vitals: Temp Pulse Resp BP Pulse Ox 98.6 F 70 20 140/78 95 11/18/17 20:19 11/18/17 20:19 11/18/17 20:19 11/18/17 20:19 11/18/17 20:19 Results - Labs CBC & Chem 7: 11/18/17 06:21 11/18/17 06:21 Labs: Laboratory Last Values WBC 9.3 K/mm3 (4.5-11.0) 11/18/17 06:21 RBC 3.68 M/mm3 (3.65-5.03) 11/18/17 06:21 Hgb 9.9 gm/dl (11.8-15.2) L 11/18/17 06:21 Hct 30.9 % (35.5-45.6) L 11/18/17 06:21 MCV 84 fl (84-94) 11/18/17 06:21 MCH 27 pg (28-32) L 11/18/17 06:21 MCHC 32 % (32-34) 11/18/17 06:21 RDW 16.0 % (13.2-15.2) H 11/18/17 06:21 Plt Count 500 K/mm3 (140-440) H 11/18/17 06:21 Lymph % (Auto) 15.4 % (13.4-35.0) 11/18/17 06:21 Butts % (Auto) 6.9 % (0.0-7.3) 11/18/17 06:21 Eos % (Auto) 0.1 % (0.0-4.3) 11/18/17 06:21 Baso % (Auto) 0.3 % (0.0-1.8) 11/18/17 06:21 Lymph # 1.4 K/mm3 (1.2-5.4) 11/18/17 06:21 Butts # 0.6 K/mm3 (0.0-0.8) 11/18/17 06:21 Eos # 0.0 K/mm3 (0.0-0.4) 11/18/17 06:21 Baso # 0.0 K/mm3 (0.0-0.1) 11/18/17 06:21 Seg Neutrophils % 77.3 % (40.0-70.0) H 11/18/17 06:21 Seg Neutrophils # 7.2 K/mm3 (1.8-7.7) 11/18/17 06:21 Sodium 135 mmol/L (137-145) L 02/22/18 06:21 Potassium 4.1 mmol/L (3.6-5.0) 11/18/17 06:21 Chloride 97.7 mmol/L (98-107) L 11/18/17 06:21 Carbon Dioxide 24 mmol/L (22-30) 11/18/17 06:21 Anion Gap 17 mmol/L 11/18/17 06:21 BUN 11 mg/dL (9-20) 11/18/17 06:21 Creatinine 0.4 mg/dL (0.8-1.5) L 11/18/17 06:21 Estimated GFR > 60 ml/min 11/18/17 06:21 BUN/Creatinine Ratio 28 % 11/18/17 06:21 Glucose 136 mg/dL (75-100) H 11/18/17 06:21 POC Glucose 134 (70-105) H 11/18/17 16:20 Hemoglobin A1c 7.5 % (4-6) H 11/15/17 06:39 Lactic Acid 1.20 mmol/L (0.7-2.0) 11/14/17 20:02 Calcium 7.9 mg/dL (8.4-10.2) L 11/18/17 06:21 Total Bilirubin 0.40 mg/dL (0.1-1.2) 11/14/17 18:39 AST 10 units/L (5-40) 11/14/17 18:39 ALT 8 units/L (7-56) 11/14/17 18:39 Alkaline Phosphatase 98 units/L (35-129) 11/14/17 18:39 Total Protein 6.2 g/dL (6.3-8.2) L 11/14/17 18:39 Albumin 2.6 g/dL (3.9-5) L 11/14/17 18:39 Albumin/Globulin Ratio 0.7 % 11/14/17 18:39 Vancomycin Trough 8.0 ug/mL (5.0-20.0) 11/17/17 04:50
--- NOTE | 2017-11-18 11:49 | Progress Note ---
Assessment and Plan - Patient Problems (1) Abscess of multiple sites of upper arm Current Visit: Yes Status: Acute Plan to address problem: s/p I&D of complicated chest wall abscess with multiple drainage sites as well as left arm abscess cavity - 11/17-POD#1. Pt stable. Discussed case with Lucila from wound care. Plan is for bedside wound care to debride the wound and facilitate wound healing. Cultures are pending. No further surgery planned at this time. Will follow along. Please call with questions. Subjective Date of service: 11/18/17 Patient Reports: Positive: still having pain (in left chest and arm. Hurt worse during dressing change. Feels like he could try to walk now. ) Objective Vital Signs - 12hr 11/18/17 11/18/17 05:56 07:25 Temperature 98.5 F 98.0 F Pulse Rate 76 86 Respiratory 18 20 Rate Blood Pressure 147/81 Blood Pressure 134/86 [Right] O2 Sat by Pulse 97 Oximetry - General physical appearance well developed, well nourished, no distress, no pain - Eyes normal occular movement - Respiratory normal expansion, normal respiratory effort - Integumentary other (new dressings on chest and arm are clean and dry. No erythema seen around the dressing edges) - Labs 11/18/17 06:21 11/18/17 06:21 Diabetes panel 11/18/17 Range/Units 06:21 Sodium 135 L (137-145) mmol/L Potassium 4.1 (3.6-5.0) mmol/L Chloride 97.7 L (98-107) mmol/L Carbon Dioxide 24 (22-30) mmol/L BUN 11 (9-20) mg/dL Creatinine 0.4 L (0.8-1.5) mg/dL Glucose 136 H (75-100) mg/dL Calcium 7.9 L (8.4-10.2) mg/dL Calcium panel 11/18/17 Range/Units 06:21 Calcium 7.9 L (8.4-10.2) mg/dL Pituitary panel 11/18/17 Range/Units 06:21 Sodium 135 L (137-145) mmol/L Potassium 4.1 (3.6-5.0) mmol/L Chloride 97.7 L (98-107) mmol/L Carbon Dioxide 24 (22-30) mmol/L BUN 11 (9-20) mg/dL Creatinine 0.4 L (0.8-1.5) mg/dL Glucose 136 H (75-100) mg/dL Calcium 7.9 L (8.4-10.2) mg/dL Adrenal panel 11/18/17 Range/Units 06:21 Sodium 135 L (137-145) mmol/L Potassium 4.1 (3.6-5.0) mmol/L Chloride 97.7 L (98-107) mmol/L Carbon Dioxide 24 (22-30) mmol/L BUN 11 (9-20) mg/dL Creatinine 0.4 L (0.8-1.5) mg/dL Glucose 136 H (75-100) mg/dL Calcium 7.9 L (8.4-10.2) mg/dL
--- NOTE | 2017-11-18 12:23 | Progress Note ---
<ELAN SHRESTHA - Last Filed: 11/18/17 12:23> Assessment and Plan Assessment: 1) Left shoulder and left arm abscess. -11/14 left arm culture + beta hemlytic strep group B -s/p I&D of complicated chest wall abscess with multiple drainage sites as well as left arm abscess cavity 11/17 2) Leukocytosis due to above. Resolved. 2) Chronic lower back pain -T and L-Spine X-rays 11/16 showed thoracic and lumbar spondylosis 3) Diabetes mellitus type 2 Plan: -obtain MRI of the lumbar spine, worsening back pain -Continue unasyn -stop contact precaution, wound is contained -Further recommendations as case progresses. Thank you for the consult Elan Shrestha NP for Ivet Hazel MD Infectious Diseases Specialist [facility] ([facility]) [phone] Subjective Date of service: 11/18/17 Interval history: My back still hurts, no fever Microbiology: Blood cultures: 11/14 NGTD Wound cultures: 11/14 left arm + beta hemlytic strep group B Current Antimicrobials: Unasyn 11/15- IV vancomycin 11/14- Objective - Exam Narrative Exam: General appearance: Alert in NAD, conversant Eyes: anicteric sclerae, moist conjunctivae; PERRLA HENT: Atraumatic; oropharynx clear with moist mucous membranes and no mucosal ulcerations/no oral thrush; normal hard and soft palate. Normal external ears. Neck: Trachea midline; supple. Lungs: CTA, with normal respiratory effort and no intercostal retractions CV: S1,S2 Abdomen: Soft, +BS. non-tender; non-distended. Extremities: surgical dressing to Left shoulder and Left arm, with small amount of drainage Skin: As above. Psych: Appropriate affect, alert and oriented to person, place and time. Neuro: alert and oriented x 3. Moving all extremities Lines: No CVL / PICC - Constitutional Vitals: Vital Signs Temp Pulse Resp BP Pulse Ox 98.0 F 86 20 147/81 97 11/18/17 07:25 11/18/17 07:25 11/18/17 07:25 11/18/17 07:25 11/18/17 07:25 Temperature -Last 24 Hours Temperature 98.0 F Temperature 98.5 F Temperature 98.4 F Temperature 98.8 F Temperature 98.3 F Temperature 98.3 F - Labs CBC & Chem 7: 11/18/17 06:21 11/18/17 06:21 Labs: Abnormal lab results 11/17/17 11/17/17 11/17/17 Range/Units 13:31 18:12 20:47 Hgb (11.8-15.2) gm/dl Hct (35.5-45.6) % MCH (28-32) pg RDW (13.2-15.2) % Plt Count (140-440) K/mm3 Seg Neutrophils % (40.0-70.0) % Sodium (137-145) mmol/L Chloride (98-107) mmol/L Creatinine (0.8-1.5) mg/dL Glucose (75-100) mg/dL POC Glucose 127 H 225 H 215 H (70-105) Calcium (8.4-10.2) mg/dL 11/18/17 11/18/17 11/18/17 Range/Units 06:21 06:21 07:31 Hgb 9.9 L (11.8-15.2) gm/dl Hct 30.9 L (35.5-45.6) % MCH 27 L (28-32) pg RDW 16.0 H (13.2-15.2) % Plt Count 500 H (140-440) K/mm3 Seg Neutrophils % 77.3 H (40.0-70.0) % Sodium 135 L (137-145) mmol/L Chloride 97.7 L (98-107) mmol/L Creatinine 0.4 L (0.8-1.5) mg/dL Glucose 136 H (75-100) mg/dL POC Glucose 131 H (70-105) Calcium 7.9 L (8.4-10.2) mg/dL <IVET HAZEL - Last Filed: 11/18/17 13:25> Objective - Constitutional Vitals: Vital Signs Temp Pulse Resp BP Pulse Ox 98.0 F 86 20 147/81 97 11/18/17 07:25 11/18/17 07:25 11/18/17 07:25 11/18/17 07:25 11/18/17 07:25 Temperature -Last 24 Hours Temperature 98.0 F Temperature 98.5 F Temperature 98.4 F Temperature 98.8 F Temperature 98.3 F - Labs CBC & Chem 7: 11/18/17 06:21 11/18/17 06:21 Labs: Abnormal lab results 11/17/17 11/17/17 11/17/17 Range/Units 13:31 18:12 20:47 Hgb (11.8-15.2) gm/dl Hct (35.5-45.6) % MCH (28-32) pg RDW (13.2-15.2) % Plt Count (140-440) K/mm3 Seg Neutrophils % (40.0-70.0) % Sodium (137-145) mmol/L Chloride (98-107) mmol/L Creatinine (0.8-1.5) mg/dL Glucose (75-100) mg/dL POC Glucose 127 H 225 H 215 H (70-105) Calcium (8.4-10.2) mg/dL 11/18/17 11/18/17 11/18/17 Range/Units 06:21 06:21 07:31 Hgb 9.9 L (11.8-15.2) gm/dl Hct 30.9 L (35.5-45.6) % MCH 27 L (28-32) pg RDW 16.0 H (13.2-15.2) % Plt Count 500 H (140-440) K/mm3 Seg Neutrophils % 77.3 H (40.0-70.0) % Sodium 135 L (137-145) mmol/L Chloride 97.7 L (98-107) mmol/L Creatinine 0.4 L (0.8-1.5) mg/dL Glucose 136 H (75-100) mg/dL POC Glucose 131 H (70-105) Calcium 7.9 L (8.4-10.2) mg/dL
--- NOTE | 2017-11-18 18:48 | Magnetic Resonance Report ---
FINAL REPORT EXAM: MR LUMBAR SPINE WO/W CON HISTORY: worsening back pain TECHNIQUE: MRI lumbar spine with and without intravenous contrast PRIORS: Correlated with prior plain film series of November 16, 2017 FINDINGS: There is abnormal signal present at L4-5. Disc demonstrates hyperintense signal on T2 weighted sequence with decreased signal on precontrast T1 sequence with some enhancement on postcontrast exam. There is abnormal signal within the inferior endplate of L4 and superior endplate of L5 demonstrating increased signal on T2 and decreased signal on precontrast T1 weighted sequence along with enhancement on the post-contrast exam. There is some epidural extension with enhancing increased signal at the posterior epidural space extending from superior aspect of L4 to the inferior margin of L5 measuring approximately 0.4 centimeters in transverse diameter. There is enhancement with increased signal on T2 weighted sequence in the paravertebral soft tissues and adjacent psoas muscles From T12-L1 through L3-L4 no focal disc herniation or bulge no evidence for canal or foraminal stenosis. Distal cord and conus are unremarkable. 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
[2017-11-18] MEDS: AMBIEN PO PRN (22:12)
[2017-11-19] MEDS: UNASYN/NS 3 GM/100 ML 3 GM/100 ML BAG IV SCH ×5 (00:34→23:43)
[2017-11-19] MEDS: PERCOCET 5/325 PO PRN ×5 (00:35→23:44)
[2017-11-19] MEDS: MORPHINE IV PRN ×5 (03:46→21:20)
[2017-11-19] MEDS: NACL 0.9% 1000 ML 1,000 ML IV SCH (03:47)
[2017-11-19] MEDS: NOVOLOG SUB-Q SCH ×4 (08:02→21:39)
[2017-11-19] MEDS: PEPCID IV SCH (09:36)
--- NOTE | 2017-11-19 10:01 | Progress Note ---
<CLARA TIRADO - Last Filed: 11/19/17 14:47> Assessment and Plan Assessment and plan: Patient is a 57-year-old male with history of diabetes, comes in for left upper shoulder and arm abscess with purulent drainage for 2 weeks. Patient also complains of back pain which is currently, 10 out of 10 present on admission. Left shoulder abscess and left upper extremity abscess Continue IV antibiotics, wound cultures from shoulder pending, culture from arm grew Beta Hemolytic Strep B S/P I&D yesterday by Dr. 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 No new events overnight, continues to complain of back pain. Labs and nursing notes reviewed. Hospitalist Physical - Constitutional Vitals: Temp Pulse Resp BP Pulse Ox 98.3 F 79 18 124/74 94 11/19/17 08:00 11/19/17 08:00 11/19/17 08:00 11/19/17 08:00 11/19/17 08:00 General appearance: Present: no acute distress, well-nourished - EENT Eyes: Present: PERRL, EOM intact ENT: hearing intact, clear oral mucosa - Neck Neck: Present: supple, normal ROM - Respiratory Respiratory effort: normal Respiratory: bilateral: CTA - Cardiovascular Rhythm: regular Heart Sounds: Present: S1 & S2 - Extremities Extremities: no ischemia, No edema - Abdominal General gastrointestinal: soft, non-tender, non-distended - Integumentary Integumentary: Present: warm, dry - Psychiatric Psychiatric: appropriate mood/affect, cooperative - Neurologic Neurologic: CNII-XII intact, moves all extremities - Allied Health Allied health notes reviewed: nursing Results - Labs CBC & Chem 7: 11/18/17 06:21 11/18/17 06:21 Labs: Laboratory Last Values WBC 9.3 K/mm3 (4.5-11.0) 11/18/17 06:21 RBC 3.68 M/mm3 (3.65-5.03) 11/18/17 06:21 Hgb 9.9 gm/dl (11.8-15.2) L 11/18/17 06:21 Hct 30.9 % (35.5-45.6) L 11/18/17 06:21 MCV 84 fl (84-94) 11/18/17 06:21 MCH 27 pg (28-32) L 11/18/17 06:21 MCHC 32 % (32-34) 11/18/17 06:21 RDW 16.0 % (13.2-15.2) H 11/18/17 06:21 Plt Count 500 K/mm3 (140-440) H 11/18/17 06:21 Lymph % (Auto) 15.4 % (13.4-35.0) 11/18/17 06:21 Geary % (Auto) 6.9 % (0.0-7.3) 11/18/17 06:21 Eos % (Auto) 0.1 % (0.0-4.3) 11/18/17 06:21 Baso % (Auto) 0.3 % (0.0-1.8) 11/18/17 06:21 Lymph # 1.4 K/mm3 (1.2-5.4) 11/18/17 06:21 Geary # 0.6 K/mm3 (0.0-0.8) 11/18/17 06:21 Eos # 0.0 K/mm3 (0.0-0.4) 11/18/17 06:21 Baso # 0.0 K/mm3 (0.0-0.1) 11/18/17 06:21 Seg Neutrophils % 77.3 % (40.0-70.0) H 11/18/17 06:21 Seg Neutrophils # 7.2 K/mm3 (1.8-7.7) 11/18/17 06:21 Sodium 135 mmol/L (137-145) L 11/18/17 06:21 Potassium 4.1 mmol/L (3.6-5.0) 11/18/17 06:21 Chloride 97.7 mmol/L (98-107) L 11/18/17 06:21 Carbon Dioxide 24 mmol/L (22-30) 11/18/17 06:21 Anion Gap 17 mmol/L 02/22/18 06:21 BUN 11 mg/dL (9-20) 11/18/17 06:21 Creatinine 0.4 mg/dL (0.8-1.5) L 11/18/17 06:21 Estimated GFR > 60 ml/min 11/18/17 06:21 BUN/Creatinine Ratio 28 % 11/18/17 06:21 Glucose 136 mg/dL (75-100) H 11/18/17 06:21 POC Glucose 105 (70-105) 11/19/17 07:17 Hemoglobin A1c 7.5 % (4-6) H 11/15/17 06:39 Lactic Acid 1.20 mmol/L (0.7-2.0) 11/14/17 20:02 Calcium 7.9 mg/dL (8.4-10.2) L 11/18/17 06:21 Total Bilirubin 0.40 mg/dL (0.1-1.2) 11/14/17 18:39 AST 10 units/L (5-40) 11/14/17 18:39 ALT 8 units/L (7-56) 11/14/17 18:39 Alkaline Phosphatase 98 units/L (35-129) 11/14/17 18:39 Total Protein 6.2 g/dL (6.3-8.2) L 11/14/17 18:39 Albumin 2.6 g/dL (3.9-5) L 11/14/17 18:39 Albumin/Globulin Ratio 0.7 % 11/14/17 18:39 Vancomycin Trough 8.0 ug/mL (5.0-20.0) 11/17/17 04:50 <OSMAR GRACIA R - Last Filed: 11/19/17 15:56> Assessment and Plan Assessment and plan: I saw and evaluated the patient. I agree with the findings and the plan of care as documented in the Nurse Practitioner's~note, with the following corrections and additions. IR consulted for disc biopsy. Hospitalist Physical - Constitutional Vitals: Temp Pulse Resp BP Pulse Ox 98.3 F 79 18 124/74 94 11/19/17 08:00 11/19/17 08:00 11/19/17 08:00 11/19/17 08:00 11/19/17 08:00 Results - Labs CBC & Chem 7: 11/18/17 06:21 11/18/17 06:21 Labs: Laboratory Last Values WBC 9.3 K/mm3 (4.5-11.0) 11/18/17 06:21 RBC 3.68 M/mm3 (3.65-5.03) 11/18/17 06:21 Hgb 9.9 gm/dl (11.8-15.2) L 11/18/17 06:21 Hct 30.9 % (35.5-45.6) L 11/18/17 06:21 MCV 84 fl (84-94) 11/18/17 06:21 MCH 27 pg (28-32) L 11/18/17 06:21 MCHC 32 % (32-34) 11/18/17 06:21 RDW 16.0 % (13.2-15.2) H 11/18/17 06:21 Plt Count 500 K/mm3 (140-440) H 11/18/17 06:21 Lymph % (Auto) 15.4 % (13.4-35.0) 11/18/17 06:21 Geary % (Auto) 6.9 % (0.0-7.3) 11/18/17 06:21 Eos % (Auto) 0.1 % (0.0-4.3) 11/18/17 06:21 Baso % (Auto) 0.3 % (0.0-1.8) 11/18/17 06:21 Lymph # 1.4 K/mm3 (1.2-5.4) 11/18/17 06:21 Geary # 0.6 K/mm3 (0.0-0.8) 11/18/17 06:21 Eos # 0.0 K/mm3 (0.0-0.4) 11/18/17 06:21 Baso # 0.0 K/mm3 (0.0-0.1) 11/18/17 06:21 Seg Neutrophils % 77.3 % (40.0-70.0) H 11/18/17 06:21 Seg Neutrophils # 7.2 K/mm3 (1.8-7.7) 11/18/17 06:21 Sodium 135 mmol/L (137-145) L 11/18/17 06:21 Potassium 4.1 mmol/L (3.6-5.0) 11/18/17 06:21 Chloride 97.7 mmol/L (98-107) L 11/18/17 06:21 Carbon Dioxide 24 mmol/L (22-30) 11/18/17 06:21 Anion Gap 17 mmol/L 11/18/17 06:21 BUN 11 mg/dL (9-20) 11/18/17 06:21 Creatinine 0.4 mg/dL (0.8-1.5) L 11/18/17 06:21 Estimated GFR > 60 ml/min 11/18/17 06:21 BUN/Creatinine Ratio 28 % 11/18/17 06:21 Glucose 136 mg/dL (75-100) H 11/18/17 06:21 POC Glucose 157 (70-105) H 11/19/17 11:22 Hemoglobin A1c 7.5 % (4-6) H 11/15/17 06:39 Lactic Acid 1.20 mmol/L (0.7-2.0) 11/14/17 20:02 Calcium 7.9 mg/dL (8.4-10.2) L 11/18/17 06:21 Total Bilirubin 0.40 mg/dL (0.1-1.2) 11/14/17 18:39 AST 10 units/L (5-40) 11/14/17 18:39 ALT 8 units/L (7-56) 11/14/17 18:39 Alkaline Phosphatase 98 units/L (35-129) 11/14/17 18:39 Total Protein 6.2 g/dL (6.3-8.2) L 11/14/17 18:39 Albumin 2.6 g/dL (3.9-5) L 11/14/17 18:39 Albumin/Globulin Ratio 0.7 % 11/14/17 18:39 Vancomycin Trough 8.0 ug/mL (5.0-20.0) 11/17/17 04:50 Urine Opiates Screen Presumptive negative 11/19/17 Unknown Urine Methadone Screen Presumptive negative 11/19/17 Unknown Ur Barbiturates Screen Presumptive negative 11/19/17 Unknown Ur Phencyclidine Scrn Presumptive negative 11/19/17 Unknown Ur Amphetamines Screen Presumptive negative 11/19/17 Unknown U Benzodiazepines Scrn Presumptive negative 11/19/17 Unknown Urine Cocaine Screen Presumptive negative 11/19/17 Unknown U Marijuana (THC) Screen Presumptive negative 11/19/17 Unknown Drugs of Abuse Note Disclamer 11/19/17 Unknown HIV 1&2 Antibody Rapid Non react (Non React) 11/19/17 10:04 HIV P24 Antigen Non react (Non React) 11/19/17 10:04
--- NOTE | 2017-11-19 10:48 | Progress Note ---
<ELAN SHRESTHA - Last Filed: 11/19/17 15:16> Assessment and Plan Assessment: 1) Left shoulder and left arm abscess. -11/14 left arm culture + beta hemlytic strep group B -s/p I&D of complicated chest wall abscess with multiple drainage sites as well as left arm abscess cavity 11/17 2) Leukocytosis due to above. Resolved. 2) Chronic lower back pain -T and L-Spine X-rays 11/16 showed thoracic and lumbar spondylosis -MRI 11/18 findings are most consistent with discitis/osteomyelitis with epidural and para vertebral extension at L4-5 3) Diabetes mellitus type 2 Plan: -will apppreciate IR consult for disc biopsy -Continue unasyn day 5 -would appreciate PT consult -Further recommendations as case progresses. Thank you for the consult I will be rounding on Wednesday Elan Shrestha NP for Ivet Hazel MD Infectious Diseases Specialist [facility] ([facility]) [phone] Subjective Date of service: 11/19/17 Interval history: My back feels a little better today, no fever Microbiology: Blood cultures: 11/14 NGTD Wound cultures: 11/14 left arm + beta hemlytic strep group B Current Antimicrobials: Unasyn 11/15- IV vancomycin 11/14- Objective - Exam Narrative Exam: General appearance: Alert in NAD, conversant Eyes: anicteric sclerae, moist conjunctivae; PERRLA HENT: Atraumatic; oropharynx clear with moist mucous membranes and no mucosal ulcerations/no oral thrush. Neck: Trachea midline; supple. Lungs: CTA, with normal respiratory effort and no intercostal retractions CV: S1,S2 Abdomen: Soft, +BS. non-tender; non-distended. Extremities: surgical dressing to Left shoulder and Left arm, with small amount of drainage Skin: As above. Psych: Appropriate affect, alert and oriented to person, place and time. Neuro: alert and oriented x 3. Moving all extremities Lines: No CVL / PICC - Constitutional Vitals: Vital Signs Temp Pulse Resp BP Pulse Ox 98.3 F 79 18 124/74 94 11/19/17 08:00 11/19/17 08:00 11/19/17 08:00 11/19/17 08:00 11/19/17 08:00 Temperature -Last 24 Hours Temperature 98.3 F Temperature 98.7 F Temperature 98.6 F Temperature 98.3 F Temperature 98.3 F - Labs CBC & Chem 7: 11/18/17 06:21 11/18/17 06:21 Labs: Abnormal lab results 11/18/17 11/18/17 11/18/17 Range/Units 11:15 16:20 22:11 POC Glucose 164 H 134 H 135 H (70-105) <IVET HAZEL - Last Filed: 11/19/17 17:19> Objective - Constitutional Vitals: Vital Signs Temp Pulse Resp BP Pulse Ox 98.2 F 88 20 140/71 97 11/19/17 15:24 11/19/17 15:24 11/19/17 15:24 11/19/17 15:24 11/19/17 15:24 Temperature -Last 24 Hours Temperature 98.2 F Temperature 98.3 F Temperature 98.7 F Temperature 98.6 F - Labs CBC & Chem 7: 11/18/17 06:21 11/18/17 06:21 Labs: Abnormal lab results 11/18/17 11/19/17 Range/Units 22:11 11:22 POC Glucose 135 H 157 H (70-105)
--- NOTE | 2017-11-19 11:37 | Progress Note ---
Assessment and Plan - Patient Problems (1) Abscess of multiple sites of upper arm Current Visit: Yes Status: Acute Plan to address problem: s/p I&D of complicated chest wall abscess with multiple drainage sites as well as left arm abscess cavity - 11/17-POD#2. Pt stable. Discussed case with Lucila from wound care. Plan is for bedside wound care to debride the wound and facilitate wound healing. No further surgery planned at this time. Will follow along. Please call with questions. Subjective Date of service: 11/19/17 Patient Reports: Positive: feels better (able to walk with assistance. Patient reports excruciating pain. No other complaints.) Objective Vital Signs - 12hr 11/19/17 11/19/17 03:48 08:00 Temperature 98.7 F 98.3 F Pulse Rate 78 79 Respiratory 20 18 Rate Blood Pressure 148/77 Blood Pressure 124/74 [Right] O2 Sat by Pulse 94 94 Oximetry - General physical appearance no distress, no pain (he appears completely relaxed. He shows no signs of being in pain. He looks better today.) - Eyes normal occular movement - Respiratory normal expansion, normal respiratory effort - Integumentary other (mild drainages noted on the chest and left arm dressings. However, there is no erythema outside of the dressings.) - Psychiatric oriented to time, oriented to person, oriented to place, speech is normal, memory intact - Labs 11/18/17 06:21 11/18/17 06:21
[2017-11-19 12:52] LABS: Amphetamine Screen,Urine PRESUMPTIVE NEGATIVE; Benzodiazepines Screen,Urine PRESUMPTIVE NEGATIVE; Cannabinoid Screen,Urine PRESUMPTIVE NEGATIVE; Cocaine Screen,Urine PRESUMPTIVE NEGATIVE; Methadone Screen,Urine PRESUMPTIVE NEGATIVE; Opiate Screen,Urine PRESUMPTIVE NEGATIVE
[2017-11-19] MEDS: PEPCID PO SCH (21:20)
[2017-11-19] MEDS: AMBIEN PO PRN (22:39)
[2017-11-20] MEDS: PERCOCET 5/325 PO PRN ×4 (04:18→20:24)
[2017-11-20] MEDS: UNASYN/NS 3 GM/100 ML 3 GM/100 ML BAG IV SCH ×2 (06:14→12:20)
[2017-11-20] MEDS: NOVOLOG SUB-Q SCH ×4 (07:28→21:49)
[2017-11-20] MEDS: PEPCID PO SCH ×2 (10:18→21:48)
--- NOTE | 2017-11-20 14:59 | Progress Note ---
Assessment and Plan // Left shoulder abscess and left upper extremity abscess Continue IV antibiotics, wound cultures from shoulder pending, culture from arm grew Beta Hemolytic Strep B S/P I&D by Dr. 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 IR consulted for biopsy // Type 2 diabetes ADA diet, Accu-Cheks, ACHS, sliding scale insulin // Moderate Malnutrition Nutrition consulted // Hypokalemia Replenished and resolved // Anemia likely ACD, will continue to monitor will order anemia panel // DVT prophylaxis [facility] Hospitalist Physical General appearance: Present: no acute distress, well-nourished - EENT Eyes: Present: PERRL, EOM intact ENT: hearing intact, clear oral mucosa - Neck Neck: Present: supple, normal ROM - Respiratory Respiratory effort: normal Respiratory: bilateral: CTA - Cardiovascular Rhythm: regular Heart Sounds: Present: S1 & S2 - Extremities Extremities: no ischemia, No edema - Abdominal General gastrointestinal: soft, non-tender, non-distended - Integumentary Integumentary: Present: warm, dry - Psychiatric Psychiatric: appropriate mood/affect, cooperative - Neurologic Neurologic: CNII-XII intact, moves all extremities - Allied Health Allied health notes reviewed: nursing Subjective Date of service: 11/20/17 Interval history: Patient seen and examined. No new events overnight, continues to complain of back pain. Labs and nursing notes reviewed. Objective - Constitutional Vitals: Vital Signs - 12hr 11/20/17 11/20/17 11/20/17 04:18 04:53 07:22 Temperature 97.9 F 98.8 F Pulse Rate 81 83 Respiratory 20 18 18 Rate Blood Pressure 147/81 142/85 O2 Sat by Pulse 96 98 Oximetry - Labs CBC & Chem 7: 11/21/17 04:41 11/21/17 04:41 Labs: Abnormal lab results 11/19/17 11/19/17 11/20/17 Range/Units 16:37 21:31 07:30 POC Glucose 177 H 127 H 129 H (70-105)
[2017-11-21] MEDS: UNASYN/NS 3 GM/100 ML 3 GM/100 ML BAG IV SCH ×7 (00:29→23:06)
[2017-11-21] MEDS: PERCOCET 5/325 PO PRN ×6 (00:30→21:07)
[2017-11-21] MEDS: NACL 0.9% 1000 ML 1,000 ML IV SCH (04:35)
[2017-11-21 04:58] LABS: Basophils # (Auto) 0.1 K/mm3 (0.0-0.1); Basophils % (Auto) 1.3 % (0.0-1.8); Eosinophils # (Auto) 0.2 K/mm3 (0.0-0.4); Eosinophils % (Auto) 1.4 % (0.0-4.3); Hematocrit 33.4 % (35.5-45.6); Hemoglobin 10.6 gm/dl (11.8-15.2); Lymphocytes # (Auto) 1.4 K/mm3 (1.2-5.4); Lymphocytes % (Auto) 12.8 % (13.4-35.0); Mean Corpuscular HGB Conc 32 % (32-34); Mean Corpuscular Hemoglobin 27 pg (28-32); Mean Corpuscular Volume 87 fl (84-94); Monocytes # (Auto) 0.8 K/mm3 (0.0-0.8); Monocytes % (Auto) 6.7 % (0.0-7.3); Platelet Count 489 K/mm3 (140-440); Red Blood Count 3.87 M/mm3 (3.65-5.03)
[2017-11-21 05:08] LABS: BUN/Creatinine Ratio 22; Blood Urea Nitrogen 11 mg/dL (9-20); Calcium 8.1 mg/dL (8.4-10.2); Hemolysis Index 15
[2017-11-21] MEDS: NOVOLOG SUB-Q SCH ×4 (07:30→22:52)
[2017-11-21] MEDS: PEPCID PO SCH ×2 (09:14→21:07)
--- NOTE | 2017-11-21 12:31 | Progress Note ---
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 Ferreira, cont wound care dressing ID following, stopped Vancomycin , cont on unasyn // Type 2 diabetes ADA diet, Accu-Cheks, ACHS, sliding scale insulin // Moderate Malnutrition Nutrition consulted // Hypokalemia Replenished and resolved // Anemia likely ACD, will continue to monitor will order anemia panel // DVT prophylaxis Lovenox Brief history: Patient is a 57-year-old male with history of diabetes, comes in for left upper shoulder and arm abscess with purulent drainage for 2 weeks. Patient also complains of back pain and lumber MRI showed L4-5 discitis/ osteomylitis. s/p I and D of the Left shoulder abscess and left upper extremity abscess. Now waiting for disc biopsy by IR. Hospitalist Physical General appearance: Present: no acute distress, well-nourished - EENT Eyes: Present: PERRL, EOM intact ENT: hearing intact, clear oral mucosa - Neck Neck: Present: supple, normal ROM - Respiratory Respiratory effort: normal Respiratory: bilateral: CTA - Cardiovascular Rhythm: regular Heart Sounds: Present: S1 & S2 - Extremities Extremities: no ischemia, No edema - Abdominal General gastrointestinal: soft, non-tender, non-distended - Integumentary Integumentary: Present: warm, dry - Psychiatric Psychiatric: appropriate mood/affect, cooperative - Neurologic Neurologic: CNII-XII intact, moves all extremities - Allied Health Allied health notes reviewed: nursing Subjective Date of service: 11/21/17 Interval history: Patient seen and examined. No new events overnight, continues to complain of back pain. Labs and nursing notes reviewed. no new complaint Objective - Constitutional Vitals: Vital Signs - 12hr 11/21/17 11/21/17 11/21/17 04:21 04:34 07:24 Temperature 98.3 F 98.2 F Pulse Rate 78 80 Respiratory 18 18 18 Rate Blood Pressure 138/73 107/61 Blood Pressure [Right] O2 Sat by Pulse 95 97 Oximetry 11/21/17 11/21/17 11:25 11:46 Temperature 98.2 F Pulse Rate 81 61 Respiratory 18 Rate Blood Pressure Blood Pressure 115/66 [Right] O2 Sat by Pulse 96 Oximetry - Labs CBC & Chem 7: 11/21/17 04:41 11/21/17 04:41 Labs: Abnormal lab results 11/20/17 11/20/17 11/21/17 Range/Units 16:14 21:30 04:41 WBC 11.2 H (4.5-11.0) K/mm3 Hgb 10.6 L (11.8-15.2) gm/dl Hct 33.4 L (35.5-45.6) % MCH 27 L (28-32) pg RDW 17.0 H (13.2-15.2) % Plt Count 489 H (140-440) K/mm3 Lymph % (Auto) 12.8 L (13.4-35.0) % Seg Neutrophils % 77.8 H (40.0-70.0) % Seg Neutrophils # 8.7 H (1.8-7.7) K/mm3 Sodium (137-145) mmol/L Carbon Dioxide (22-30) mmol/L Creatinine (0.8-1.5) mg/dL Glucose (75-100) mg/dL POC Glucose 149 H 150 H (70-105) Calcium (8.4-10.2) mg/dL 11/21/17 11/21/17 Range/Units 04:41 07:29 WBC (4.5-11.0) K/mm3 Hgb (11.8-15.2) gm/dl Hct (35.5-45.6) % MCH (28-32) pg RDW (13.2-15.2) % Plt Count (140-440) K/mm3 Lymph % (Auto) (13.4-35.0) % Seg Neutrophils % (40.0-70.0) % Seg Neutrophils # (1.8-7.7) K/mm3 Sodium 134 L (137-145) mmol/L Carbon Dioxide 21 L (22-30) mmol/L Creatinine 0.5 L (0.8-1.5) mg/dL Glucose 161 H (75-100) mg/dL POC Glucose 141 H (70-105) Calcium 8.1 L (8.4-10.2) mg/dL
--- NOTE | 2017-11-21 15:59 | Progress Note ---
Assessment and Plan Assessment: 1) Left shoulder and left arm abscess. -11/14 left arm culture + beta hemlytic strep group B -s/p I&D of complicated chest wall abscess with multiple drainage sites as well as left arm abscess cavity 11/17 -Cultures 11/17 left arm OR + beta hemolytic Strep group B and Enterococcus and 11/17 left shoulder + beta hemolytic Strep group B 2) Leukocytosis due to above. Resolved. 2) Chronic lower back pain -T and L-Spine X-rays 11/16 showed thoracic and lumbar spondylosis -MRI 11/18 findings are most consistent with discitis/osteomyelitis with epidural and para vertebral extension at L4-5 3) Diabetes mellitus type 2 Plan: -IR consult for disc biopsy-pending -Continue unasyn day 7 -would appreciate PT consult -place PICC line on Wednesday Thank you for your consultation, will follow up with you. Tracey Soto MD Infectious Diseases Specialist [facility] ([facility]) M [phone] O [phone] Subjective Date of service: 11/21/17 Principal diagnosis: discitis Interval history: Feels ok still 10/10 lower back pain, no fever. Microbiology: Blood cultures: 11/14 Neg 11/19 ngtd Wound cultures: 11/14 left arm + beta hemolytic Strep group B 11/17 left arm OR + beta hemolytic Strep group B and Enterococcus 11/17 left shoulder + beta hemolytic Strep group B Current Antimicrobials: Unasyn 11/15- Previous Antimicrobials: IV vancomycin 11/14- Objective - Exam Narrative Exam: General appearance: Alert in NAD, conversant Eyes: anicteric sclerae, moist conjunctivae; PERRLA HENT: Atraumatic; oropharynx clear Neck: Trachea midline; supple. Lungs: CTA, with normal respiratory effort and no intercostal retractions CV: S1,S2 Abdomen: Soft, +BS. non-tender; non-distended. Extremities: surgical dressing to Left shoulder and Left arm, with small amount of drainage Skin: As above. Psych: Appropriate affect, alert and oriented to person, place and time. Neuro: alert and oriented x 3. Moving all extremities Lines: No CVL / PICC - Constitutional Vitals: Vital Signs Temp Pulse Resp BP Pulse Ox 98.2 F 61 18 115/66 96 11/21/17 11:46 11/21/17 11:46 11/21/17 11:46 11/21/17 11:46 11/21/17 11:25 Temperature -Last 24 Hours Temperature 98.2 F Temperature 98.2 F Temperature 98.3 F Temperature 98.7 F Temperature 98.3 F Temperature 98.4 F - Labs CBC & Chem 7: 11/21/17 04:41 11/21/17 04:41 Labs: Abnormal lab results 11/20/17 11/20/17 11/21/17 Range/Units 16:14 21:30 04:41 WBC 11.2 H (4.5-11.0) K/mm3 Hgb 10.6 L (11.8-15.2) gm/dl Hct 33.4 L (35.5-45.6) % MCH 27 L (28-32) pg RDW 17.0 H (13.2-15.2) % Plt Count 489 H (140-440) K/mm3 Lymph % (Auto) 12.8 L (13.4-35.0) % Seg Neutrophils % 77.8 H (40.0-70.0) % Seg Neutrophils # 8.7 H (1.8-7.7) K/mm3 Sodium (137-145) mmol/L Carbon Dioxide (22-30) mmol/L Creatinine (0.8-1.5) mg/dL Glucose (75-100) mg/dL POC Glucose 149 H 150 H (70-105) Calcium (8.4-10.2) mg/dL 11/21/17 11/21/17 Range/Units 04:41 07:29 WBC (4.5-11.0) K/mm3 Hgb (11.8-15.2) gm/dl Hct (35.5-45.6) % MCH (28-32) pg RDW (13.2-15.2) % Plt Count (140-440) K/mm3 Lymph % (Auto) (13.4-35.0) % Seg Neutrophils % (40.0-70.0) % Seg Neutrophils # (1.8-7.7) K/mm3 Sodium 134 L (137-145) mmol/L Carbon Dioxide 21 L (22-30) mmol/L Creatinine 0.5 L (0.8-1.5) mg/dL Glucose 161 H (75-100) mg/dL POC Glucose 141 H (70-105) Calcium 8.1 L (8.4-10.2) mg/dL
[2017-11-21] MEDS: AMBIEN PO PRN (23:11)
[2017-11-22] MEDS: MORPHINE IV PRN ×3 (00:56→12:38)
[2017-11-22] MEDS: PERCOCET 5/325 PO PRN ×6 (01:04→21:24)
[2017-11-22] MEDS: NOVOLOG SUB-Q SCH ×4 (08:08→21:25)
--- NOTE | 2017-11-22 08:37 | Event Note ---
Date: 11/22/17 Reviewed images and history. Will refer to diagnostic radiologist for biopsy.
[2017-11-22] MEDS: PEPCID PO SCH ×2 (09:56→21:24)
--- NOTE | 2017-11-22 10:23 | XRay Report ---
AP CHEST: HISTORY: PICC line placement A right arm PICC has been inserted which terminates in the mid right atrium. Consider retraction by 2-3 cm to the cavoatrial junction. AP view of the chest demonstrates a normal mediastinal and cardiac contour with clear lungs and normal bony and soft tissue structures. IMPRESSION: Unremarkable AP chest.
--- NOTE | 2017-11-22 10:58 | Progress Note ---
Assessment and Plan - Patient Problems (1) Abscess of multiple sites of upper arm Current Visit: Yes Status: Acute Plan to address problem: s/p I&D of complicated chest wall abscess with multiple drainage sites as well as left arm abscess cavity - 11/17-POD#7. Pt stable. Discussed case with wound care last week. Plan is for bedside wound care to debride the wound and facilitate wound healing. No further surgery planned at this time. Will follow along. Have suggested to him that he discussed his pain management with the hospitalist. Please call with questions. Subjective Patient Reports: Positive: still having pain (patient reports that he still having severe pain that is not being addressed. Reports pain is in the left shoulder.). Negative: nausea, vomiting, fever Objective Vital Signs - 12hr 11/21/17 11/22/17 11/22/17 23:51 07:38 08:43 Temperature 98.9 F 98.4 F Pulse Rate 86 Respiratory 18 20 18 Rate Blood Pressure 128/63 142/69 Blood Pressure [Right] O2 Sat by Pulse 95 Oximetry 11/22/17 11/22/17 09:56 10:00 Temperature 98.4 F Pulse Rate 96 H Respiratory 18 20 Rate Blood Pressure Blood Pressure 132/81 [Right] O2 Sat by Pulse 97 Oximetry - General physical appearance no distress, no pain (he does not appear to be in any pain) - Eyes normal occular movement - Respiratory normal expansion, normal respiratory effort - Integumentary other (both wounds are overall fairly clean. There may be some soberness tissue in the chest wound. The erythema is less intense now. The swelling has decreased.) - Labs 11/21/17 04:41 11/21/17 04:41
--- NOTE | 2017-11-22 11:59 | Progress Note ---
Assessment and Plan Assessment: 1) Left shoulder and left arm abscess: due to Strep group B. -11/14 left arm culture + beta hemlytic strep group B -s/p I&D of complicated chest wall abscess with multiple drainage sites as well as left arm abscess cavity 11/17 -Cultures 11/17 left arm OR + beta hemolytic Strep group B and Enterococcus ( Enterococcus ? a colonizer) and 11/17 left shoulder + beta hemolytic Strep group B 2) Leukocytosis due to above. Resolved. 2) Chronic lower back pain -T and L-Spine X-rays 11/16 showed thoracic and lumbar spondylosis -MRI 11/18 findings are most consistent with discitis/osteomyelitis with epidural and para vertebral extension at L4-5 3) Diabetes mellitus type 2 Plan: -Cancel disc biopsy in view of 2 site deep wound cx + Strep group B -Continue unasyn day 8 of 45 -would appreciate PT consult -Upon discharge will do ceftriaxone 2 g IV q day for 6 weeks from 11/17 until 12/28. Ceftriaxone is an alternative to first choice which is penicillin G 4 million q 4h, however pt is unfunded and needs easy administration. Orders sent to case therapist for approval. -check CRP Thank you for your consultation, will follow up with you. Tracey Soto MD Infectious Diseases Specialist [facility] ([facility]) M [phone] O [phone] Subjective Date of service: 11/22/17 Principal diagnosis: discitis Interval history: Feels still 6/10 lower back pain, no fever. Microbiology: Blood cultures: 11/14 Neg 11/19 ngtd Wound cultures: 11/14 left arm + beta hemolytic Strep group B 11/17 left arm OR + beta hemolytic Strep group B and Enterococcus 11/17 left shoulder + beta hemolytic Strep group B Current Antimicrobials: Unasyn 11/15- Previous Antimicrobials: IV vancomycin 11/14- Objective - Exam Narrative Exam: General appearance: Alert in NAD, conversant Eyes: anicteric sclerae, moist conjunctivae; PERRLA HENT: Atraumatic; oropharynx clear Neck: Trachea midline; supple. Lungs: CTA, with normal respiratory effort and no intercostal retractions CV: S1,S2 Abdomen: Soft, +BS. non-tender; non-distended. Extremities: surgical dressing to Left shoulder and Left arm, with small amount of drainage Skin: As above. Psych: Appropriate affect, alert and oriented to person, place and time. Neuro: alert and oriented x 3. Moving all extremities Lines: No CVL / PICC - Constitutional Vitals: Vital Signs Temp Pulse Resp BP Pulse Ox 98.4 F 96 H 20 132/81 97 11/22/17 10:21 11/22/17 10:00 11/22/17 10:21 11/22/17 10:21 11/22/17 10:00 Temperature -Last 24 Hours Temperature 98.4 F Temperature 98.4 F Temperature 98.4 F Temperature 98.9 F Temperature 98.6 F - Labs CBC & Chem 7: 11/21/17 04:41 11/21/17 04:41 Labs: Abnormal lab results 11/21/17 11/21/17 11/21/17 Range/Units 11:30 16:32 21:22 POC Glucose 129 H 125 H 157 H (70-105) 11/22/17 Range/Units 06:16 POC Glucose 133 H (70-105)
[2017-11-22] MEDS: NACL 0.9% 1000 ML 1,000 ML IV SCH (12:38)
--- NOTE | 2017-11-22 12:42 | Progress Note ---
Assessment and Plan Assessment: 1) Left shoulder and left arm abscess: due to Strep group B. -11/14 left arm culture + beta hemlytic strep group B -s/p I&D of complicated chest wall abscess with multiple drainage sites as well as left arm abscess cavity 11/17 -Cultures 11/17 left arm OR + beta hemolytic Strep group B and Enterococcus ( Enterococcus ? a colonizer) and 11/17 left shoulder + beta hemolytic Strep group B 2) Leukocytosis due to above. Resolved. 2) Chronic lower back pain -T and L-Spine X-rays 11/16 showed thoracic and lumbar spondylosis -MRI 11/18 findings are most consistent with discitis/osteomyelitis with epidural and para vertebral extension at L4-5 3) Diabetes mellitus type 2 Plan: -Continue unasyn day 9 of -Upon discharge will do ceftriaxone 2 g IV q day for 6 weeks from 11/17 until 12/28. Ceftriaxone is an alternative to first choice which is penicillin G 4 million q 4h, however pt is unfunded and needs easy administration. Orders sent to telephonic nurse case manager for approval. -follow up CRP Thank you for your consultation, will follow up with you. Elan Santizo NP for Tracey Soto MD Infectious Diseases Specialist [facility] ([facility]) M [phone] O [phone] Subjective Date of service: 11/22/17 Principal diagnosis: discitis Interval history: My lower back hurts really bad, no fever Microbiology: Blood cultures: 11/14 Neg 11/19 ngtd Wound cultures: 11/14 left arm + beta hemolytic Strep group B 11/17 left arm OR + beta hemolytic Strep group B and Enterococcus 11/17 left shoulder + beta hemolytic Strep group B Current Antimicrobials: Unasyn 11/15- Previous Antimicrobials: IV vancomycin 11/14- Objective - Exam Narrative Exam: General appearance: Alert in NAD, conversant Eyes: anicteric sclerae, moist conjunctivae; PERRLA HENT: Atraumatic; oropharynx clear with moist mucous membranes and no mucosal ulcerations/no oral thrush. Neck: Trachea midline; supple. Lungs: CTA, with normal respiratory effort and no intercostal retractions CV: S1,S2 Abdomen: Soft, +BS. non-tender; non-distended. Extremities: surgical wound to Left shoulder and Left arm, with drainage tube to left shoulder Skin: warm, surgical wound to left shoulder and left arm with drainage tube to to left shoulder Psych: Appropriate affect, alert and oriented to person, place and time. Neuro: alert and oriented x 3. Moving all extremities Lines: No CVL / PICC - Constitutional Vitals: Vital Signs Temp Pulse Resp BP Pulse Ox 98.4 F 96 H 20 132/81 97 11/22/17 10:21 11/22/17 10:00 11/22/17 10:56 11/22/17 10:21 11/22/17 10:00 Temperature -Last 24 Hours Temperature 98.4 F Temperature 98.4 F Temperature 98.4 F Temperature 98.9 F Temperature 98.6 F - Labs CBC & Chem 7: 11/21/17 04:41 11/21/17 04:41 Labs: Abnormal lab results 11/21/17 11/21/17 11/21/17 Range/Units 11:30 16:32 21:22 POC Glucose 129 H 125 H 157 H (70-105) 11/22/17 Range/Units 06:16 POC Glucose 133 H (70-105)
--- NOTE | 2017-11-22 12:50 | Progress Note ---
Assessment and Plan // Back pain MRI revealed findings are most consistent with discitis/osteomyelitis with epidural and paravertebral extension at L4-5 Per ID no biopsy required, as 2 sets of wound cx positive for beta hemolytic strep B On Unasyn now, ID recommended to cont abx ceftriaxone 2 g IV q day for 6 weeks until 12/28/17 on discharge. // Left shoulder abscess and left upper extremity abscess Continue IV antibiotics, wound cultures from shoulder pending, culture from arm grew Beta Hemolytic Strep B S/P I&D by Dr. Ferreira, cont wound care dressing ID following, stopped Vancomycin , cont on unasyn // Type 2 diabetes ADA diet, Accu-Cheks, ACHS, sliding scale insulin // Moderate Malnutrition Nutrition consulted // Hypokalemia Replenished and resolved // Anemia likely ACD, will continue to monitor will order anemia panel // DVT prophylaxis Lovenox Brief history: Patient is a 57-year-old male with history of diabetes, comes in for left upper shoulder and arm abscess with purulent drainage for 2 weeks. Patient also complains of back pain and lumber MRI showed L4-5 discitis/ osteomylitis. s/p I and D of the Left shoulder abscess and left upper extremity abscess. Now waiting for disc biopsy by IR. Hospitalist Physical General appearance: Present: no acute distress, well-nourished - EENT Eyes: Present: PERRL, EOM intact ENT: hearing intact, clear oral mucosa - Neck Neck: Present: supple, normal ROM - Respiratory Respiratory effort: normal Respiratory: bilateral: CTA - Cardiovascular Rhythm: regular Heart Sounds: Present: S1 & S2 - Extremities Extremities: no ischemia, No edema - Abdominal General gastrointestinal: soft, non-tender, non-distended - Integumentary Integumentary: Present: warm, dry - Psychiatric Psychiatric: appropriate mood/affect, cooperative - Neurologic Neurologic: CNII-XII intact, moves all extremities - Allied Health Allied health notes reviewed: nursing Subjective Date of service: 11/22/17 Principal diagnosis: discitis Interval history: Patient seen and examined. No new events overnight, continues to complain of back pain. Labs and nursing notes reviewed. no new complaint Objective - Constitutional Vitals: Vital Signs - 12hr 11/22/17 11/22/17 11/22/17 07:38 08:43 09:56 Temperature 98.4 F Pulse Rate Respiratory 20 18 18 Rate Blood Pressure 142/69 Blood Pressure [Right] O2 Sat by Pulse Oximetry 11/22/17 11/22/17 11/22/17 10:00 10:21 10:56 Temperature 98.4 F 98.4 F Pulse Rate 96 H Respiratory 20 20 20 Rate Blood Pressure 132/81 Blood Pressure 132/81 [Right] O2 Sat by Pulse 97 Oximetry 11/22/17 12:38 Temperature Pulse Rate Respiratory 20 Rate Blood Pressure Blood Pressure [Right] O2 Sat by Pulse Oximetry - Labs CBC & Chem 7: 11/21/17 04:41 11/21/17 04:41 Labs: Abnormal lab results 11/21/17 11/21/17 11/21/17 Range/Units 11:30 16:32 21:22 POC Glucose 129 H 125 H 157 H (70-105) 11/22/17 Range/Units 06:16 POC Glucose 133 H (70-105)
[2017-11-22] MEDS: UNASYN/NS 3 GM/100 ML 3 GM/100 ML BAG IV SCH ×3 (13:14→23:55)
--- NOTE | 2017-11-22 13:54 | XRay Report ---
AP CHEST: HISTORY: Right arm PICC line placement The right arm PICC line has been retracted since 0949 hours and now terminates at the cavoatrial junction. AP view of the chest demonstrates a normal mediastinal and cardiac contour with clear lungs and normal bony and soft tissue structures. IMPRESSION: Unremarkable AP chest.
[2017-11-23] MEDS: PERCOCET 5/325 PO PRN ×5 (01:58→23:44)
[2017-11-23] MEDS: NOVOLOG SUB-Q SCH ×4 (09:37→23:46)
[2017-11-23] MEDS: PEPCID PO SCH ×2 (09:37→21:18)
[2017-11-23] MEDS: UNASYN/NS 3 GM/100 ML 3 GM/100 ML BAG IV SCH ×4 (11:26→23:45)
--- NOTE | 2017-11-23 16:44 | Progress Note ---
Assessment and Plan Assessment: 1) Extensive Left shoulder and left arm abscesses: due to Strep group B. -11/14 left arm culture + beta hemlytic strep group B -s/p I&D of complicated chest wall abscess with multiple drainage sites as well as left arm abscess cavity 11/17 -Cultures 11/17 left arm OR + beta hemolytic Strep group B and Enterococcus casseliflavus ( Enterococcus ? a colonizer) and 11/17 left shoulder + beta hemolytic Strep group B 2) Leukocytosis due to above. Resolved. 2) Chronic lower back pain -T and L-Spine X-rays 11/16 showed thoracic and lumbar spondylosis -MRI 11/18 findings are most consistent with discitis/osteomyelitis with epidural and para vertebral extension at L4-5 -CRP=2.5 3) Diabetes mellitus type 2 Plan: -Continue unasyn day 9 of 45 -Upon discharge will do ceftriaxone 2 g IV q day for 6 weeks from 11/17 until 12/28. Ceftriaxone is an alternative to first choice which is penicillin G 4 million q 4h, however pt is unfunded and needs easy administration. Orders sent to embedded case manager for approval. -ID clinic f/u in 2 weeks I am signing off Thank you for your consultation, will follow up with you. Tracey Soto MD Infectious Diseases Specialist [facility] ([facility]) M [phone] O [phone] Subjective Date of service: 11/23/17 Principal diagnosis: discitis Interval history: Feels still 8/10 lower back pain, no fever. Microbiology: Blood cultures: 11/14 Neg 11/19 ngtd Wound cultures: 11/14 left arm + beta hemolytic Strep group B 11/17 left arm OR + beta hemolytic Strep group B and Enterococcus 11/17 left shoulder + beta hemolytic Strep group B Current Antimicrobials: Unasyn 11/15- Previous Antimicrobials: IV vancomycin 11/14- Objective - Exam Narrative Exam: General appearance: Alert in NAD, conversant Eyes: anicteric sclerae, moist conjunctivae; PERRLA HENT: Atraumatic; oropharynx clear Neck: Trachea midline; supple. Lungs: CTA, with normal respiratory effort and no intercostal retractions CV: S1,S2 Abdomen: Soft, +BS. non-tender; non-distended. Extremities: deep surgical wound to Left shoulder and Left arm, no drainage Skin: As above. Psych: Appropriate affect, alert and oriented to person, place and time. Neuro: alert and oriented x 3. Moving all extremities Lines: No CVL / PICC - Constitutional Vitals: Vital Signs Temp Pulse Resp BP Pulse Ox 98.2 F 94 H 18 132/83 97 11/23/17 15:09 11/23/17 15:09 11/23/17 15:09 11/23/17 15:09 11/23/17 15:09 Temperature -Last 24 Hours Temperature 98.2 F Temperature 98.2 F Temperature 97.7 F Temperature 98.1 F - Labs CBC & Chem 7: 11/21/17 04:41 11/21/17 04:41 Labs: Abnormal lab results 11/22/17 11/22/17 11/23/17 Range/Units 16:43 21:29 03:35 POC Glucose 156 H 146 H (70-105) C-Reactive Protein 2.50 H (0.00-1.30) mg/dL 11/23/17 11/23/17 11/23/17 Range/Units 07:52 11:25 16:24 POC Glucose 140 H 173 H 145 H (70-105) C-Reactive Protein (0.00-1.30) mg/dL
--- NOTE | 2017-11-23 16:54 | Progress Note ---
Assessment and Plan - Patient Problems (1) Abscess of multiple sites of upper arm Current Visit: Yes Status: Acute Plan to address problem: s/p I&D of complicated chest wall abscess with multiple drainage sites as well as left arm abscess cavity - 11/17-POD#6. Pt stable. Discussed case with wound care yesterday. Plan is for bedside wound care to debride the wound and facilitate wound healing. No further surgery planned at this time. Drains removed today in order to place wound vac over chest wounds. Will follow along peripherally. Ok to discharge whenever wound care and antibiotic arrangements for home have been made. Please call with questions. Subjective Date of service: 11/23/17 Patient Reports: Positive: no new complaints Objective Vital Signs - 12hr 11/23/17 11/23/17 11/23/17 07:25 09:36 10:36 Temperature 98.2 F Pulse Rate 83 Respiratory 16 0 L 20 Rate Blood Pressure Blood Pressure 125/70 [Right] O2 Sat by Pulse 98 Oximetry 11/23/17 11/23/17 13:06 15:09 Temperature 98.2 F Pulse Rate 94 H Respiratory 20 18 Rate Blood Pressure 132/83 Blood Pressure [Right] O2 Sat by Pulse 97 Oximetry - General physical appearance no distress, no pain - Eyes normal occular movement - Respiratory normal expansion, normal respiratory effort - Integumentary other (left arm has a wound vac in place. Drains were easily removed from the shoulder area. Chest wound and mild erythema appears stable.) - Labs 11/21/17 04:41 11/21/17 04:41
--- NOTE | 2017-11-23 17:01 | Progress Note ---
Assessment and Plan Assessment and plan: will only increase pain control - Patient Problems (1) Abscess of left arm Current Visit: Yes Status: Acute Plan to address problem: Abscess left back arm shoulder. Patient is status post incision and drainage of abscess. This is Unasyn day . Plan is to stabilize discharge and upon discharge if patient is able to get antibiotics on outpatient basis will change to Rocephin 2 g IV daily 6 weeks. Has been referred to case management to see if patient has resources to get IV antibiotics at home. If they can obtain this clearance would discharge with Rocephin as indicated above. (2) Abscess of left shoulder Current Visit: Yes Status: Acute Plan to address problem: Pain control will continue current Percocet morphine as indicated. Appears to be fairly well controlled. (3) Abscess of upper back excluding scapular region Current Visit: Yes Status: Acute History Interval history: Patient complaining arm and shoulder pain. Consistent with I&D and drainage of chest abscess and arm abscess. Patient afebrile. No extension of cellulitis. Hospitalist Physical - Constitutional Vitals: Temp Pulse Resp BP Pulse Ox 98.2 F 94 H 18 132/83 97 11/23/17 15:09 11/23/17 15:09 11/23/17 15:09 11/23/17 15:09 11/23/17 15:09 General appearance: Present: no acute distress, well-nourished - EENT Eyes: Present: PERRL, EOM intact ENT: hearing intact, clear oral mucosa, dentition normal - Neck Neck: Present: supple, normal ROM - Respiratory Respiratory effort: normal - Cardiovascular Rhythm: regular Heart Sounds: Present: S1 & S2 - Extremities Extremities: no ischemia, pulses intact, pulses symmetrical, No edema, normal temperature, normal color Extremity abnormal: other (range of motion limited to drain arm pain.) - Abdominal General gastrointestinal: soft, non-tender, non-distended - Psychiatric Psychiatric: appropriate mood/affect, cooperative - Neurologic Neurologic: CNII-XII intact, moves all extremities Results - Labs CBC & Chem 7: 11/21/17 04:41 11/21/17 04:41 Labs: Laboratory Last Values WBC 11.2 K/mm3 (4.5-11.0) H 11/21/17 04:41 RBC 3.87 M/mm3 (3.65-5.03) 11/21/17 04:41 Hgb 10.6 gm/dl (11.8-15.2) L 11/21/17 04:41 Hct 33.4 % (35.5-45.6) L 11/21/17 04:41 MCV 87 fl (84-94) 11/21/17 04:41 MCH 27 pg (28-32) L 11/21/17 04:41 MCHC 32 % (32-34) 11/21/17 04:41 RDW 17.0 % (13.2-15.2) H 11/21/17 04:41 Plt Count 489 K/mm3 (140-440) H 11/21/17 04:41 Lymph % (Auto) 12.8 % (13.4-35.0) L 11/21/17 04:41 Stephens % (Auto) 6.7 % (0.0-7.3) 11/21/17 04:41 Eos % (Auto) 1.4 % (0.0-4.3) 11/21/17 04:41 Baso % (Auto) 1.3 % (0.0-1.8) 11/21/17 04:41 Lymph # 1.4 K/mm3 (1.2-5.4) 11/21/17 04:41 Stephens # 0.8 K/mm3 (0.0-0.8) 11/21/17 04:41 Eos # 0.2 K/mm3 (0.0-0.4) 11/21/17 04:41 Baso # 0.1 K/mm3 (0.0-0.1) 11/21/17 04:41 Seg Neutrophils % 77.8 % (40.0-70.0) H 11/21/17 04:41 Seg Neutrophils # 8.7 K/mm3 (1.8-7.7) H 11/21/17 04:41 Sodium 134 mmol/L (137-145) L 11/21/17 04:41 Potassium 4.2 mmol/L (3.6-5.0) 11/21/17 04:41 Chloride 98.6 mmol/L (98-107) 11/21/17 04:41 Carbon Dioxide 21 mmol/L (22-30) L 11/21/17 04:41 Anion Gap 19 mmol/L 11/21/17 04:41 BUN 11 mg/dL (9-20) 11/21/17 04:41 Creatinine 0.5 mg/dL (0.8-1.5) L 11/21/17 04:41 Estimated GFR > 60 ml/min 11/21/17 04:41 BUN/Creatinine Ratio 22 % 11/21/17 04:41 Glucose 161 mg/dL (75-100) H 11/21/17 04:41 POC Glucose 145 (70-105) H 11/23/17 16:24 Hemoglobin A1c 7.5 % (4-6) H 11/15/17 06:39 Lactic Acid 1.20 mmol/L (0.7-2.0) 11/14/17 20:02 Calcium 8.1 mg/dL (8.4-10.2) L 11/21/17 04:41 Total Bilirubin 0.40 mg/dL (0.1-1.2) 11/14/17 18:39 AST 10 units/L (5-40) 11/14/17 18:39 ALT 8 units/L (7-56) 11/14/17 18:39 Alkaline Phosphatase 98 units/L (35-129) 11/14/17 18:39 C-Reactive Protein 2.50 mg/dL (0.00-1.30) H 11/23/17 03:35 Total Protein 6.2 g/dL (6.3-8.2) L 11/14/17 18:39 Albumin 2.6 g/dL (3.9-5) L 11/14/17 18:39 Albumin/Globulin Ratio 0.7 % 11/14/17 18:39 Vancomycin Trough 8.0 ug/mL (5.0-20.0) 11/17/17 04:50 Urine Opiates Screen Presumptive negative 11/19/17 Unknown Urine Methadone Screen Presumptive negative 11/19/17 Unknown Ur Barbiturates Screen Presumptive negative 11/19/17 Unknown Ur Phencyclidine Scrn Presumptive negative 11/19/17 Unknown Ur Amphetamines Screen Presumptive negative 11/19/17 Unknown U Benzodiazepines Scrn Presumptive negative 11/19/17 Unknown Urine Cocaine Screen Presumptive negative 11/19/17 Unknown U Marijuana (THC) Screen Presumptive negative 11/19/17 Unknown Drugs of Abuse Note Disclamer 11/19/17 Unknown HIV 1&2 Antibody Rapid Non react (Non React) 11/19/17 10:04 HIV P24 Antigen Non react (Non React) 11/19/17 10:04
[2017-11-23] MEDS: MORPHINE IV PRN (21:17)
[2017-11-23] MEDS: AMBIEN PO PRN (23:51)
[2017-11-24] MEDS: UNASYN/NS 3 GM/100 ML 3 GM/100 ML BAG IV SCH ×3 (05:03→17:31)
[2017-11-24] MEDS: MORPHINE IV PRN ×2 (05:17→10:11)
[2017-11-24] MEDS: PERCOCET 5/325 PO PRN ×4 (07:42→21:53)
[2017-11-24] MEDS: NOVOLOG SUB-Q SCH ×3 (09:48→16:36)
[2017-11-24] MEDS: PEPCID PO SCH ×2 (10:14→21:54)
--- NOTE | 2017-11-24 21:55 | Progress Note ---
Assessment and Plan (1) Osteomyelitis of L4 to L5 with extension to the Spinal and paraspinal area IV antibiotics with Rocephin for total of 6 weeks (11/17-12/28/17) recommended by infectious disease specialist. Case management to arrange for home IV antibiotics. Patient does not have any payer source therefore a challenging arrangement (2) Abscess of shoulder and left arm Current Visit: Yes Status: Acute Plan to address problem: Cx beta-hemolytic strep S/P incision and drainage of abscess. Continue local wound care while awaiting discharge planning with home IV antibiotics therapy with Rocephin per ID recommendation . (3) Abscess of left shoulder Current Visit: Yes Status: Acute Plan to address problem: Pain control will continue current Percocet and morphine as indicated. Appears to be fairly well controlled. (4) Abscess of upper back excluding scapular region Current Visit: Yes Status: Acute Continue local wound care DVT prophylaxis prophylaxis with SCD Subjective Date of service: 11/24/17 Principal diagnosis: osteomyelitis, discitis, and this showed Interval history: Patient seen and examined. Denies any fever or chills. Complains of pain and decrease in his pain medication. Currently on morphine and 10 mg of hydrocodone APAP. Reviewed laboratory and radiological data Objective - Exam Narrative Exam: Constitutional: Well-nourished well-developed. In no distress Head: Normocephalic atraumatic Eyes: Pupils are equal round and reactive to light Nose: No enlarged turbinates, no septal deviation. Mouth: Moist mucous membranes. Neck: Supple no thyromegaly. No bruit. No JVD Heart: Regular rate and rhythm, S1-S2 abnormal. No rubs murmurs or gallop Lungs: Clear to auscultation bilaterally no rales or rhonchi Abdomen: Soft, nontender. Bowel sound are present. Extremities: No edema no cyanosis and no clubbing. Neuro: Alert oriented Oriented x3. No focal sensory or motor deficit. Skin: Chest wall and left arm abscess status post I and D Psychiatry: Euthymic. Calm. - Constitutional Vitals: Vital Signs - 12hr 11/24/17 11/24/17 15:58 21:12 Temperature 98.2 F 99.7 F H Pulse Rate 99 H 107 H Respiratory 20 20 Rate Blood Pressure 130/70 Blood Pressure 142/85 [Right] O2 Sat by Pulse 95 Oximetry - Labs CBC & Chem 7: 11/21/17 04:41 11/21/17 04:41 Labs: Abnormal lab results 11/23/17 11/24/17 11/24/17 Range/Units 22:26 07:56 11:27 POC Glucose 136 H 130 H 164 H (70-105) 11/24/17 Range/Units 16:04 POC Glucose 220 H (70-105)
[2017-11-25] MEDS: NOVOLOG SUB-Q SCH ×3 (01:32→21:18)
[2017-11-25] MEDS: UNASYN/NS 3 GM/100 ML 3 GM/100 ML BAG IV SCH ×5 (01:53→23:10)
[2017-11-25] MEDS: PERCOCET 5/325 PO PRN ×5 (01:53→23:10)
[2017-11-25 04:50] LABS: Basophils # (Auto) 0.1 K/mm3 (0.0-0.1); Basophils % (Auto) 1.1 % (0.0-1.8); Eosinophils # (Auto) 0.3 K/mm3 (0.0-0.4); Eosinophils % (Auto) 2.9 % (0.0-4.3); Hematocrit 33.9 % (35.5-45.6); Hemoglobin 11.3 gm/dl (11.8-15.2); Lymphocytes # (Auto) 1.8 K/mm3 (1.2-5.4); Lymphocytes % (Auto) 16.4 % (13.4-35.0); Mean Corpuscular HGB Conc 33 % (32-34); Mean Corpuscular Hemoglobin 28 pg (28-32); Mean Corpuscular Volume 85 fl (84-94); Monocytes # (Auto) 0.9 K/mm3 (0.0-0.8); Platelet Count 452 K/mm3 (140-440); Red Blood Count 3.99 M/mm3 (3.65-5.03); Red Cell Distribution Width 17.6 % (13.2-15.2)
[2017-11-25 05:13] LABS: Alanine Aminotransferase 7 units/L (7-56); Albumin 3.1 g/dL (3.9-5); BUN/Creatinine Ratio 30; Blood Urea Nitrogen 15 mg/dL (9-20); Calcium 9.1 mg/dL (8.4-10.2); Hemolysis Index 3
[2017-11-25] MEDS: MORPHINE IV PRN (08:43)
[2017-11-25] MEDS: PEPCID PO SCH ×2 (14:14→21:12)
--- NOTE | 2017-11-25 18:39 | Progress Note ---
Assessment and Plan Assessment and plan: will only increase pain control - Patient Problems (1) Abscess of left arm Current Visit: Yes Status: Acute Plan to address problem: Abscess left back arm shoulder. Patient is status post incision and drainage of abscess. This is Unasyn day 9 45. Plan is to stabilize discharge and upon discharge if patient is able to get antibiotics on outpatient basis will change to Rocephin 2 g IV daily 6 weeks. Has been referred to case management to see if patient has resources to get IV antibiotics at home. If they can obtain this clearance would discharge with Rocephin as indicated above. (2) Abscess of left shoulder Current Visit: Yes Status: Acute Plan to address problem: Pain control will continue current Percocet morphine as indicated. Appears to be fairly well controlled. (3) Abscess of upper back excluding scapular region Current Visit: Yes Status: Acute (4) Osteomyelitis Current Visit: Yes Status: Acute Plan to address problem: Osteomyelitis left shoulder extending into spine and paraspinal area. Plan to continue Rocephin for 6 weeks. End date will be 12-28-17. No previous source for outside IV antibiotics History Interval history: Patient speaks about cheondoism and about his pain. Hospital course unremarkable p.m. Concerns. No new Hospitalist Physical - Constitutional Vitals: Temp Pulse Resp BP Pulse Ox 97.8 F 96 H 17 117/66 94 11/25/17 12:49 11/25/17 12:21 11/25/17 08:43 11/25/17 12:21 11/25/17 12:21 General appearance: Present: no acute distress, well-nourished - EENT Eyes: Present: PERRL, EOM intact ENT: hearing intact, clear oral mucosa, dentition normal - Neck Neck: Present: supple, normal ROM - Respiratory Respiratory: bilateral: CTA - Cardiovascular Rhythm: regular Heart Sounds: Present: S1 & S2 - Extremities Extremities: pulses intact, pulses symmetrical, No edema, normal temperature, normal color, Full ROM Extremity abnormal: other (has drain in left arm area from abscess) - Abdominal General gastrointestinal: soft, non-tender, non-distended, normal bowel sounds - Integumentary Integumentary: Present: clear, warm, dry - Psychiatric Psychiatric: appropriate mood/affect, intact judgment & insight, memory intact - Neurologic Neurologic: CNII-XII intact, no focal deficits, moves all extremities Results - Labs CBC & Chem 7: 11/25/17 04:26 11/25/17 04:26 Labs: Laboratory Last Values WBC 10.7 K/mm3 (4.5-11.0) 11/25/17 04:26 RBC 3.99 M/mm3 (3.65-5.03) 11/25/17 04:26 Hgb 11.3 gm/dl (11.8-15.2) L 11/25/17 04:26 Hct 33.9 % (35.5-45.6) L 11/25/17 04:26 MCV 85 fl (84-94) 11/25/17 04:26 MCH 28 pg (28-32) 11/25/17 04:26 MCHC 33 % (32-34) 11/25/17 04:26 RDW 17.6 % (13.2-15.2) H 11/25/17 04:26 Plt Count 452 K/mm3 (140-440) H 11/25/17 04:26 Lymph % (Auto) 16.4 % (13.4-35.0) 11/25/17 04:26 [place] % (Auto) 8.0 % (0.0-7.3) H 11/25/17 04:26 Eos % (Auto) 2.9 % (0.0-4.3) 11/25/17 04:26 Baso % (Auto) 1.1 % (0.0-1.8) 11/25/17 04:26 Lymph # 1.8 K/mm3 (1.2-5.4) 11/25/17 04:26 [place] # 0.9 K/mm3 (0.0-0.8) H 11/25/17 04:26 Eos # 0.3 K/mm3 (0.0-0.4) 11/25/17 04:26 Baso # 0.1 K/mm3 (0.0-0.1) 11/25/17 04:26 Seg Neutrophils % 71.6 % (40.0-70.0) H 11/25/17 04:26 Seg Neutrophils # 7.7 K/mm3 (1.8-7.7) 11/25/17 04:26 Sodium 137 mmol/L (137-145) 11/25/17 04:26 Potassium 4.0 mmol/L (3.6-5.0) 11/25/17 04:26 Chloride 99.3 mmol/L (98-107) 11/25/17 04:26 Carbon Dioxide 22 mmol/L (22-30) 11/25/17 04:26 Anion Gap 20 mmol/L 11/25/17 04:26 BUN 15 mg/dL (9-20) 11/25/17 04:26 Creatinine 0.5 mg/dL (0.8-1.5) L 11/25/17 04:26 Estimated GFR > 60 ml/min 11/25/17 04:26 BUN/Creatinine Ratio 30 % 11/25/17 04:26 Glucose 146 mg/dL (75-100) H 11/25/17 04:26 POC Glucose 130 (70-105) H 11/25/17 17:11 Hemoglobin A1c 7.5 % (4-6) H 11/15/17 06:39 Lactic Acid 1.20 mmol/L (0.7-2.0) 11/14/17 20:02 Calcium 9.1 mg/dL (8.4-10.2) 11/25/17 04:26 Total Bilirubin 0.60 mg/dL (0.1-1.2) 11/25/17 04:26 AST 12 units/L (5-40) 11/25/17 04:26 ALT 7 units/L (7-56) 11/25/17 04:26 Alkaline Phosphatase 120 units/L (35-129) 11/25/17 04:26 C-Reactive Protein 2.50 mg/dL (0.00-1.30) H 11/23/17 03:35 Total Protein 7.2 g/dL (6.3-8.2) 11/25/17 04:26 Albumin 3.1 g/dL (3.9-5) L 11/25/17 04:26 Albumin/Globulin Ratio 0.8 % 11/25/17 04:26 Vancomycin Trough 8.0 ug/mL (5.0-20.0) 11/17/17 04:50 Urine Opiates Screen Presumptive negative 11/19/17 Unknown Urine Methadone Screen Presumptive negative 11/19/17 Unknown Ur Barbiturates Screen Presumptive negative 11/19/17 Unknown Ur Phencyclidine Scrn Presumptive negative 11/19/17 Unknown Ur Amphetamines Screen Presumptive negative 11/19/17 Unknown U Benzodiazepines Scrn Presumptive negative 11/19/17 Unknown Urine Cocaine Screen Presumptive negative 11/19/17 Unknown U Marijuana (THC) Screen Presumptive negative 11/19/17 Unknown Drugs of Abuse Note Disclamer 11/19/17 Unknown HIV 1&2 Antibody Rapid Non react (Non React) 11/19/17 10:04 HIV P24 Antigen Non react (Non React) 11/19/17 10:04
[2017-11-26] MEDS: NACL 0.9% 1000 ML 1,000 ML IV SCH (04:24)
[2017-11-26] MEDS: PERCOCET 5/325 PO PRN ×4 (04:24→18:28)
[2017-11-26] MEDS: UNASYN/NS 3 GM/100 ML 3 GM/100 ML BAG IV SCH ×3 (05:05→18:29)
[2017-11-26 05:25] LABS: Basophils # (Auto) 0.2 K/mm3 (0.0-0.1); Basophils % (Auto) 2.2 % (0.0-1.8); Eosinophils # (Auto) 0.3 K/mm3 (0.0-0.4); Eosinophils % (Auto) 2.8 % (0.0-4.3); Hematocrit 33.6 % (35.5-45.6); Hemoglobin 11.3 gm/dl (11.8-15.2); Lymphocytes % (Auto) 19.9 % (13.4-35.0); Mean Corpuscular HGB Conc 34 % (32-34); Mean Corpuscular Hemoglobin 28 pg (28-32); Mean Corpuscular Volume 84 fl (84-94); Monocytes # (Auto) 0.8 K/mm3 (0.0-0.8); Monocytes % (Auto) 7.3 % (0.0-7.3); Platelet Count 426 K/mm3 (140-440); Red Blood Count 4.01 M/mm3 (3.65-5.03); Red Cell Distribution Width 17.3 % (13.2-15.2)
[2017-11-26 05:48] LABS: Alanine Aminotransferase 9 units/L (7-56); Albumin 3.3 g/dL (3.9-5); BUN/Creatinine Ratio 26; Blood Urea Nitrogen 13 mg/dL (9-20); Calcium 9.1 mg/dL (8.4-10.2); Hemolysis Index 3
[2017-11-26] MEDS: NOVOLOG SUB-Q SCH ×3 (08:00→16:04)
[2017-11-26] MEDS: PEPCID PO SCH (09:25)
--- NOTE | 2017-11-26 14:04 | Discharge Summary ---
Providers - Providers Date of Admission: 11/14/17 19:45 Date of discharge: 11/26/17 Attending physician: SHAWN JORDAN 11/14/17 19:29 Consult to Physician [CONS] Stat Consulting Provider: LUDA BERNABE Reason For Exam: arm,shoulder and back abscesses Notified:: yes. 11/15/17 05:48 Consult to Physician [CONS] Routine Consulting Provider: TRACEY CASON Reason For Exam: Carbuncle/Abscess L Shoulder Notified:: yes 11/15/17 05:54 Consult to Case Management [CONS] Routine Services Needed at Discharge: Home Health Services Notified:: cm notified Consult to Dietitian/Nutrition [CONS] Routine Physician Instructions: Reason For Exam: Malnutrition Reason for Consult: Pt needs oral supplement 11/15/17 07:19 Consult to Wound/ET Nurse [CONS] Stat Reason For Exam: wound eval 11/18/17 09:43 Physical Therapy Evaluation and Treat [CONS] Routine Comment: Reason For Exam: Back pain/ difficulty walking 11/19/17 15:27 Consult to Interventional Radiology [CONS] Routine Consulting Provider: RAUL DUARTE Reason For Exam: disc biopsy Place consult to:: DR. DUARTE Notified:: ANSWERING SERVICE Phone number called:: [phone] Was contact made?: Yes If yes, spoke with:: DR. DUARTE Comment:: COMPLETED BY ROWENA 11/19/17 17:22 Consult to Interventional Radiology [CONS] Routine Consulting Provider: EMILY PANDEY Reason For Exam: L4-L5 disk biopsy Place consult to:: duplicate Notified:: duplicate 11/21/17 16:06 Consult to PICC Line RN [CONS] Stat Reason For Exam: IV antibiotics for 6 weeks Type Line:: PICC 11/22/17 12:02 Consult to Case Management [CONS] Stat Services Needed at Discharge: Other Notified:: regional director of admissions Additional Physician Instructions: [facility] MD Salazar Denise [phone] O [phone] F [phone] OUTPATIENT PARENTERAL ANTIBIOTIC THERAPY ORDERS Diagnoses: Lumbar osteomyelitis due to presumed Strep agalactiae Antimicrobial administration: ceftriaxone 2 g IV q day for 6 weeks from 11/17 until 12/28/17 Lines: PICC Lab monitoring: CBC, CMP, CRP once a week preferly on Wednesday morning. Please fax results to [phone] and call [phone] for critical lab results. Tracey Mazariegos Date: 11/22/17 Primary care physician: COTTON WRINGER Hospitalization Condition: Fair Disposition: DC-01 TO HOME OR SELFCARE Exam - Constitutional Vitals: Temp Pulse Resp BP Pulse Ox 98.6 F 95 H 18 131/72 93 11/26/17 07:41 11/26/17 07:41 11/26/17 07:41 11/26/17 07:41 11/26/17 07:41 Plan Activity: advance as tolerated Diet: diabetic Additional Instructions: 1.Follow up with PCP or [facility] in 1 week. 2.Follow up ID clinic in 2 weeks. 3..Rocephin 2g iv daily now until 12/28/17. Arranged Follow up with: PRIMARY CARE, [Primary Care Provider] - 3-5 Days Prescriptions: Famotidine [Pepcid] 20 mg PO BID #60 tablet oxyCODONE /ACETAMINOPHEN [Percocet 5/325 mg] 1 tab PO Q6H PRN #30 tablet PRN Reason: Pain, Moderate (4-6)
[2017-11-26 18:32] VITALS: BP 132/70
== END 2017-11-26 23:00 | disposition home or self-care (01) | DRG 580 ==
LOC: ED 16:36 → 3B-SURG 19:45 → 3A 11-21 17:38 → 3B-SURG 11-22 10:26
PROVIDERS: ADMIT Internal Medicine; ATTEND Internal Medicine
PROC: 0J9F0ZZ Drainage of Left Upper Arm Subcutaneous Tissue and Fascia, Open Approach (ICD-10-PCS; principal; 2017-11-17)
PROC: 0J960ZZ Drainage of Chest Subcutaneous Tissue and Fascia, Open Approach (ICD-10-PCS; 2017-11-17)
DX: L02.212 Cutaneous abscess of back [any part, except buttock and flank] (principal); L02.414 Cutaneous abscess of left upper limb; E44.0 Moderate protein-calorie malnutrition; M86.9 Osteomyelitis, unspecified; E11.9 Type 2 diabetes mellitus without complications; Z68.24 Body mass index [BMI] 24.0-24.9, adult; E87.6 Hypokalemia; D64.9 Anemia, unspecified
CPT/HCPCS: 36415; 71045; 72070; 72100; 72158; 80048; 80053; 80202; 80307; 82140; 82962; 83036; 85025; 86140; 87040; 87075; 87076; 87116; 87186; 87806; 96361; 96365; 96375; A9577; J0295; J1100; J1815; J1885; J2001; J2270; J2405; J2704; J3010; J3370; J7030; J7040

== ENCOUNTER 2019-06-06 11:25 | Emergency (ER) | payer MEDICAID ==
[2019-06-06 11:33] VITALS: BP 144/84
--- NOTE | 2019-06-06 11:35 | Event Note ---
ED Screening Note Date of service: 06/06/19 Time: 11:31 ED Screening Note: This is a 59 y.o. M. that presents to the ER with acute on chronic left shoulder pain and bilateral knee pain for 1 month. Patient was seeing PCP who passed to manage pain. Current smoker 1/2 ppd. Taking tylenol with no improvement of symptoms. This initial assessment/diagnostic orders/clinical plan/treatment(s) is/are subject to change based on patients health status, clinical progression and re- assessment by fellow clinical providers in the ED. Further treatment and workup at subsequent clinical providers discretion. Patient/guardian urged not to elope from the ED as their condition may be serious if not clinically assessed and managed. Initial orders include:
[2019-06-06] MEDS ORDERED: TORADOL IM ONE (12:50)
[2019-06-06] MEDS ORDERED: DECADRON IM ONE (12:50)
--- NOTE | 2019-06-06 13:13 | Emergency Department Report ---
ED General Adult HPI - General Chief complaint: Pain General Stated complaint: BACK/SHOULDER/KNEE PAIN Time Seen by Provider: 06/06/19 11:31 Source: patient Mode of arrival: Ambulatory Limitations: No Limitations - Related Data Previous Rx's Medication Instructions Recorded Last Taken Type Famotidine [Pepcid] 20 mg PO BID #60 tablet 11/26/17 Unknown Rx oxyCODONE /ACETAMINOPHEN [Percocet 1 tab PO Q6H PRN #30 tablet 11/26/17 Unknown Rx 5/325 mg] Diclofenac Dr [Kiana Vasquez] 75 mg PO BID #30 tablet 06/06/19 Unknown Rx HYDROcodone/APAP 5-325 [[place] 1 each PO Q6HR PRN #10 tablet 06/06/19 Unknown Rx 5/325] Ibuprofen [Motrin] 800 mg PO Q8HR #30 tablet 06/06/19 Unknown Rx Allergies Allergy/AdvReac Type Severity Reaction Status Date / Time No Known Allergies Allergy Verified 06/06/19 11:33 ED Review of Systems ROS: Stated complaint: BACK/SHOULDER/KNEE PAIN Other details as noted in HPI ED Past Medical Hx - Past Medical History Previous Medical History?: Yes Hx Hypertension: No Hx Diabetes: Yes Hx Deep Vein Thrombosis: No Hx Liver Disease: No Hx Renal Disease: No Hx Asthma: No Hx COPD: No Hx HIV: No Additional medical history: chronic pain - Surgical History Past Surgical History?: Yes Hx Pacemaker: No Hx Internal Defibrillator: No Additional Surgical History: left shoulder - Social History Smoking Status: Current Every Day Smoker Substance Use Type: None - Medications Home Medications: Home Medications Medication Instructions Recorded Confirmed Last Taken Type Famotidine [Pepcid] 20 mg PO BID #60 tablet 11/26/17 Unknown Rx oxyCODONE /ACETAMINOPHEN [Percocet 1 tab PO Q6H PRN #30 tablet 11/26/17 Unknown Rx 5/325 mg] Diclofenac [Kiana Vasquez] 75 mg PO BID #30 tablet 06/06/19 Unknown Rx HYDROcodone/APAP 5-325 [[place] 1 each PO Q6HR PRN #10 tablet 06/06/19 Unknown Rx 5/325] Ibuprofen [Motrin] 800 mg PO Q8HR #30 tablet 06/06/19 Unknown Rx ED Physical Exam - General Limitations: No Limitations ED Course Vital Signs 06/06/19 11:31 Temperature 97.5 F L Pulse Rate 111 H Respiratory 16 Rate Blood Pressure 144/84 O2 Sat by Pulse 97 Oximetry Critical care attestation.: If time is entered above; I have spent that time in minutes in the direct care of this critically ill patient, excluding procedure time. ED Disposition Clinical Impression: Acute exacerbation of chronic low back pain Disposition: TO HOME OR SELFCARE Is pt being admited?: No Does the pt Need Aspirin: No Condition: Stable Instructions: Lumbar Radiculopathy (ED) Additional Instructions: Make sure to follow up with the primary care physician as discussed. Take all your medications as you've been prescribed. If you have any worsening symptoms or develop new symptoms please return to ED immediately. Prescriptions: Ibuprofen [Motrin] 800 mg PO Q8HR #30 tablet HYDROcodone/APAP 5-325 [[place] 5/325] 1 each PO Q6HR PRN #10 tablet PRN Reason: Pain Diclofenac Dr [Voltarejuan Vasquez] 75 mg PO BID #30 tablet Referrals: SHELBI GIRON MD [Staff Physician] - 3-5 Days [facility] [Outside] - 3-5 Days [facility] [Outside] - 3-5 Days [facility] [Outside] - 3-5 Days [facility] [Outside] - 3-5 Days [facility] [Provider Group] - 3-5 Days Forms: Accompanied Note, Work/School Release Form(ED) Time of Disposition: 13:18
== END 2019-06-06 13:28 | disposition home or self-care (01) ==
LOC: ED 11:25
DX: G89.29 Other chronic pain (principal); M54.5 Low back pain; E11.9 Type 2 diabetes mellitus without complications; F17.200 Nicotine dependence, unspecified, uncomplicated; Z79.899 Other long term (current) drug therapy
CPT/HCPCS: 96372; 99282; J1100; J1885